=== PATIENT | male | born 1990 | race Hispanic/Latino ===

== ENCOUNTER 2017-12-06 12:39 | Emergency (ER) | payer BC ==
[2017-12-06] MEDS ORDERED: PANTOPRAZOLE 40 MG INJ ONE (14:49)
--- NOTE | 2017-12-06 14:49 | RAD REPORT ---
EXAM DESCRIPTION: US - Abdomen Exam Limited - 12/06/2017 2:37 pm CLINICAL HISTORY: Abdominal pain. COMPARISON: None. FINDINGS: The gallbladder wall is not thickened. A gallstone is not seen. The biliary tree is normal caliber. IMPRESSION: Unremarkable gallbladder ultrasound.
[2017-12-06 15:12] LABS: Absolute Lymphocytes (CBC) 1.6 K/uL (0.7-4.9); Absolute Monocytes 0.6 K/uL (0.1-1.3); Absolute Neutrophil 4.9 K/uL (1.8-8.0); Basophils % 0.6 % (0-1.3); Eosinophils % 0.6 % (0-4.4); Hematocrit 44.5 % (39.6-49.0); Lymphocytes % 21.8 % (15.3-44.8); MCH 30.8 pg (27.0-35.0); MCV 91.6 fL (80-100); MPV 7.5 fL (7.6-11.3); Monocytes % 8.4 % (3.3-12.3); RBC Red Blood Cell Count 4.86 M/uL (4.33-5.43)
[2017-12-06 15:15] LABS: Bicarbonate 30 mEq/L (21-31); Glucose Level 109 mg/dL (65-120); Lipase 17 U/L (22-51); Potassium 3.9 mEq/L (3.6-5.0); Sodium Level 139 mEq/L (135-145)
[2017-12-06 15:22] LABS: ALT/SGPT 22 IU/L (10-60); AST/SGOT 17 IU/L (10-42); Albumin 4.4 g/dL (3.2-5.5); Alkaline Phosphatase 77 IU/L (42-121); Amylase Level 53 U/L (28-100); BUN Blood Urea Nitrogen 13 mg/dL (6-20); Bilirubin Direct 0.1 mg/dL (0-0.2); Bilirubin Total 0.9 mg/dL (0.3-1.2); Protein, Total 7.6 g/dL (6.0-8.3)
--- NOTE | 2017-12-06 17:12 | EDPHYS ---
Physician Documentation [facility] Name: Graham Rosenbaum Age: 27 yrs Sex: Male : 1990 Arrival Date: 12/06/2017 Time: 12:42 Bed 24 Private MD: None, None ED Physician Taiwo Rice HPI: 12/06 15:45 This 27 yrs old Male presents to ER via Ambulatory with complaints of kb Abdominal Pain. 15:45 The patient presents with abdominal pain in the upper abdomen. Onset: The kb symptoms/episode began/occurred last night. The symptoms do not radiate. Associated signs and symptoms: none. The symptoms are described as constant. Modifying factors: The symptoms are alleviated by nothing, the symptoms are aggravated by pressure. Severity of pain: At its worst the pain was mild moderate in the emergency department the pain is unchanged. The patient has not experienced similar symptoms in the past. The patient has not recently seen a physician. Historical: - Allergies: 12:48 No Known Allergies; aj - Home Meds: 12:48 omeprazole Oral [Active]; aj - PMHx: 12:48 Ulcers; aj - PSHx: 12:48 Left Hand; aj - Immunization history:: Adult Immunizations up to date. - Social history:: Smoking status: Patient/guardian denies using tobacco. ROS: 15:44 Constitutional: Negative for fever, chills, and weight loss, Cardiovascular: Negative kb for chest pain, palpitations, and edema, Respiratory: Negative for shortness of breath, cough, wheezing, and pleuritic chest pain, Back: Negative for injury and pain, : Negative for injury, bleeding, discharge, and swelling, MS/Extremity: Negative for injury and deformity, Skin: Negative for injury, rash, and discoloration, Neuro: Negative for headache, weakness, numbness, tingling, and seizure. 15:44 Abdomen/GI: Positive for abdominal pain, Negative for nausea, vomiting, and diarrhea, constipation, abdominal cramps, abdominal distension, anorexia. Exam: 15:44 Constitutional: This is a well developed, well nourished patient who is awake, alert, kb and in no acute distress. Head/Face: Normocephalic, atraumatic. Chest/axilla: Normal chest wall appearance and motion. Nontender with no deformity. No lesions are appreciated. Cardiovascular: Regular rate and rhythm with a normal S1 and S2. No gallops, murmurs, or rubs. Normal PMI, no JVD. No pulse deficits. Respiratory: Lungs have equal breath sounds bilaterally, clear to auscultation and percussion. No rales, rhonchi or wheezes noted. No increased work of breathing, no retractions or nasal flaring. Back: No spinal tenderness. No costovertebral tenderness. Full range of motion. Skin: Warm, dry with normal turgor. Normal color with no rashes, no lesions, and no evidence of cellulitis. MS/ Extremity: Pulses equal, no cyanosis. Neurovascular intact. Full, normal range of motion. Neuro: Awake and alert, GCS 15, oriented to person, place, time, and situation. Cranial nerves II-XII grossly intact. Motor strength 5/5 in all extremities. Sensory grossly intact. Cerebellar exam normal. Normal gait. 15:44 Abdomen/GI: Inspection: abdomen appears normal, Bowel sounds: normal, in all quadrants, Palpation: soft, in all quadrants, mild abdominal tenderness, in the epigastric area, right upper quadrant and left upper quadrant. Vital Signs: 12:48 BP 125 / 95; Pulse 90; Resp 17; Temp 98.1; Pulse Ox 96% on R/A; Weight 129.27 kg; aj Height 6 ft. 1 in. (185.42 cm); 13:48 BP 140 / 84; Pulse 77; Resp 18; Pulse Ox 95% on R/A; aj1 14:45 BP 135 / 72; Pulse 64; Resp 18; Pulse Ox 99% ; aj1 15:51 BP 124 / 95; Pulse 70; Resp 18; Pulse Ox 100% ; aj1 17:00 BP 137 / 73; Pulse 62; Resp 16; Pulse Ox 100% on R/A; mt 12:48 Body Mass Index 37.60 (129.27 kg, 185.42 cm) aj MDM: 13:58 Patient medically screened. kb 15:44 Data reviewed: vital signs, nurses notes. Data interpreted: Pulse oximetry: on room air kb is 95 %. Interpretation: normal. 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 12/06 14:18 Order name: Amylase, Serum; Complete Time: 15:25 kb 12/06 14:18 Order name: Basic Metabolic Panel; Complete Time: 15:25 kb 12/06 14:18 Order name: CBC with Diff; Complete Time: 15:16 kb 12/06 14:18 Order name: Hepatic Function; Complete Time: 15:25 kb 12/06 14:18 Order name: Lipase; Complete Time: 15:25 kb 12/06 18:41 Order name: Urine Dipstick--Ancillary (enter results) ag 12/06 14:18 Order name: IV Saline Lock; Complete Time: 14:57 kb 12/06 14:18 Order name: Labs collected and sent; Complete Time: 14:57 kb 12/06 14:18 Order name: Urine Dipstick-Ancillary (obtain specimen); Complete Time: 16:46 kb 12/06 14:18 Order name: US Abdomen Limited; Complete Time: 14:54 kb Administered Medications: 14:57 Drug: ProTONIX 40 mg Route: IVP; Site: right antecubital; aj1 16:46 Follow up: Response: No adverse reaction aj1 Disposition: 12/06/17 17:11 Discharged to Home. Impression: Upper abdominal pain, unspecified. - Condition is Stable. - Discharge Instructions: Gastroesophageal Reflux Disease, Adult, Abdominal Pain, Adult, [id number]. - Medication Reconciliation Form, Thank You Letter, Antibiotic Education, Prescription Opioid Use form. - Follow up: Emergency Department; When: As needed; Reason: Worsening of condition. Follow up: Private Physician; When: 2 - 3 days; Reason: Recheck today's complaints, Continuance of care, Re-evaluation by your physician. Addendum: 12/09/2017 08:47 Co-signature as Attending Physician, Taiwo Rice MD I agree with the assessment and c lopez plan of care. Signatures: Dispatcher [employer] Qiana Finley, LAMAR VILLASENOR-Adalgisa Hallman RN RN aj1 Irina Sutton RN RN aj Anderson, Corey, MD MD cha Gallardo, Ana ag Corrections: (The following items were deleted from the chart) 12/06 17:27 17:11 12/06/2017 17:11 Discharged to Home. Impression: Upper abdominal pain, aj1 unspecified. Condition is Stable. Forms are Medication Reconciliation Form, Thank You Letter, Antibiotic Education, Prescription Opioid Use. Follow up: Emergency Department; When: As needed; Reason: Worsening of condition. Follow up: Private Physician; When: 2 - 3 days; Reason: Recheck today's complaints, Continuance of care, Re-evaluation by your physician. kb 18:42 17:27 12/06/2017 17:11 Discharged to Home. Impression: Upper abdominal pain, ag unspecified. Condition is Stable. Discharge Instructions: Gastroesophageal Reflux Disease, Adult, Abdominal Pain, Adult, [id number]. Forms are Medication Reconciliation Form, Thank You Letter, Antibiotic Education, Prescription Opioid Use. Follow up: Emergency Department; When: As needed; Reason: Worsening of condition. Follow up: Private Physician; When: 2 - 3 days; Reason: Recheck today's complaints, Continuance of care, Re-evaluation by your physician. aj1
--- NOTE | 2017-12-06 17:12 | ER ---
Nurse's Notes [facility] Name: Graham Rosenbaum Age: 27 yrs Sex: Male : 1990 Arrival Date: 12/06/2017 Time: 12:42 Bed 24 Private MD: None, None Diagnosis: Upper abdominal pain, unspecified Presentation: 12/06 12:46 Presenting complaint: Patient states: Upper abdominal pain that started today. Patient aj states, "it's my ulcers." Patient did not call his GI doctor before coming to ER. Transition of care: patient was not received from another setting of care. Onset of symptoms was December 06, 2017. Initial Sepsis Screen: Does the patient meet any 2 criteria? No. Patient's initial sepsis screen is negative. Does the patient have a suspected source of infection? No. Patient's initial sepsis screen is negative. Care prior to arrival: None. 12:46 Method Of Arrival: Ambulatory aj 12:46 Acuity: SAMANTHA 3 aj Triage Assessment: 12:48 General: Appears in no apparent distress. comfortable, Behavior is calm, cooperative, aj appropriate for age. Pain: Complains of pain in epigastric area and left upper quadrant. Neuro: Level of Consciousness is awake, alert, obeys commands, Oriented to person, place, time, situation, Appropriate for age. Respiratory: Airway is patent Respiratory effort is even, unlabored, Respiratory pattern is regular, symmetrical. GI: Abdomen is flat, non-distended. GI: Reports upper abdominal pain, epigastric pain. Derm: Skin is intact, is healthy with good turgor, Skin is pink, warm \\T\\ dry. normal. Historical: - Allergies: 12:48 No Known Allergies; aj - Home Meds: 12:48 omeprazole Oral [Active]; aj - PMHx: 12:48 Ulcers; aj - PSHx: 12:48 Left Hand; aj - Immunization history:: Adult Immunizations up to date. - Social history:: Smoking status: Patient/guardian denies using tobacco. Screenin:48 Abuse screen: Denies threats or abuse. Denies injuries from another. Nutritional aj1 screening: No deficits noted. Tuberculosis screening: No symptoms or risk factors identified. 17:26 Fall Risk None identified. aj1 Assessment: 13:48 General: Appears in no apparent distress. uncomfortable, Behavior is calm, cooperative, aj1 appropriate for age. Pain: Complains of pain in left upper quadrant and epigastric area Pain does not radiate. Pain currently is 7 out of 10 on a pain scale. Quality of pain is described as squeezing, Alleviated by nothing. Aggravated by nothing. Neuro: Level of Consciousness is awake, alert, obeys commands, Oriented to person, place, time, situation, Speech is normal, Facial symmetry appears normal. Cardiovascular: Patient's skin is warm and dry. Respiratory: Airway is patent Respiratory effort is even, unlabored, Respiratory pattern is regular, symmetrical. GI: Abdomen is non-distended, Bowel sounds present X 4 quads. Abd is soft X 4 quads Abdomen is tender to palpation in left upper quadrant and epigastric area Patient currently denies diarrhea, nausea, vomiting. : No signs and/or symptoms were reported regarding the genitourinary system. EENT: No signs and/or symptoms were reported regarding the EENT system. Derm: No signs and/or symptoms reported regarding the dermatologic system. Skin is pink, warm \\T\\ dry. normal. Musculoskeletal: No signs and/or symptoms reported regarding the musculoskeletal system. Circulation, motion, and sensation intact. 14:45 Reassessment: Patient appears in no apparent distress at this time. No changes from aj1 previously documented assessment. Patient and/or family updated on plan of care and expected duration. Pain level reassessed. Patient is alert, oriented x 3, equal unlabored respirations, skin warm/dry/pink. 15:50 Reassessment: Patient appears in no apparent distress at this time. No changes from aj1 previously documented assessment. Patient and/or family updated on plan of care and expected duration. Pain level reassessed. Patient is alert, oriented x 3, equal unlabored respirations, skin warm/dry/pink. 17:06 Reassessment: Patient appears in no apparent distress at this time. No changes from aj1 previously documented assessment. Patient and/or family updated on plan of care and expected duration. Pain level reassessed. Patient is alert, oriented x 3, equal unlabored respirations, skin warm/dry/pink. Vital Signs: 12:48 BP 125 / 95; Pulse 90; Resp 17; Temp 98.1; Pulse Ox 96% on R/A; Weight 129.27 kg; aj Height 6 ft. 1 in. (185.42 cm); 13:48 BP 140 / 84; Pulse 77; Resp 18; Pulse Ox 95% on R/A; aj1 14:45 BP 135 / 72; Pulse 64; Resp 18; Pulse Ox 99% ; aj1 15:51 BP 124 / 95; Pulse 70; Resp 18; Pulse Ox 100% ; aj1 17:00 BP 137 / 73; Pulse 62; Resp 16; Pulse Ox 100% on R/A; mt 12:48 Body Mass Index 37.60 (129.27 kg, 185.42 cm) aj ED Course: 12:42 Patient arrived in ED. mr 12:42 None, None is Private Physician. mr 12:47 Triage completed. aj 12:48 Arm band placed on left wrist. Patient placed in waiting room, Patient notified of wait aj time. 13:42 Tiki Tran, RN is Primary Nurse. iw 13:48 Adalgisa Sadler, RN is Primary Nurse. aj1 13:48 Patient has correct armband on for positive identification. Bed in low position. Call aj1 light in reach. Side rails up X 1. 13:48 No provider procedures requiring assistance completed. aj1 13:58 Qiana Gómez FNP-C is PSYCHIATRICP. kb 13:58 Taiwo Rice MD is Attending Physician. kb 14:30 US Abdomen Limited In Process Unspecified. EDMS 17:26 IV discontinued, intact, bleeding controlled, No redness/swelling at site. Pressure aj1 dressing applied. 18:39 Primary Nurse role handed off by Adalgisa Sadler, KENNEDY ag Administered Medications: 14:57 Drug: ProTONIX 40 mg Route: IVP; Site: right antecubital; aj1 16:46 Follow up: Response: No adverse reaction aj1 Outcome: 17:11 Discharge ordered by . kb 17:26 Discharged to home ambulatory. aj1 17:26 Condition: good 17:26 Discharge instructions given to patient, Instructed on discharge instructions, follow up and referral plans. Demonstrated understanding of instructions, follow-up care. 17:27 Patient left the ED. aj1 18:42 Patient left the ED. ag Signatures: Dispatcher [employer] EDMS Qiana Gómez FNP-C FNP-Adalgisa Hallman RN RN ajIrina Louis RN RN aj Rivera, Maria mr Tiki Tran, RN KENNEDY Sabina Damon Moriah mt
[2017-12-06 18:50] LABS: Urine Blood TRACE (NEG); Urine Glucose NEGATIVE (NEG); Urine Protein NEGATIVE (NEG); Urine pH 7.5 (5.0-7.0)
== END 2017-12-06 18:42 | disposition home or self-care (01) ==
LOC: ER 12:39
DX: R10.10 Upper abdominal pain, unspecified (principal)
CPT/HCPCS: 36415; 76705; 80048; 80076; 81003; 82150; 83690; 85025; 96374; 99283; C9113

== ENCOUNTER 2018-02-27 06:46 | Emergency (ER) | payer BC ==
--- NOTE | 2018-02-27 07:26 | ER ---
Nurse's Notes [facility] Name: Graham Rosenbaum Age: 27 yrs Sex: Male : 1990 Arrival Date: 02/27/2018 Time: 06:50 Bed 13 Private MD: Diagnosis: Encounter for attention to dressings, sutures and drains Presentation: 02/27 07:03 Presenting complaint: Patient states: he was at work yesterday and got some PVC bb chemical on his abscess on his back that he had taken the packing out of. Transition of care: patient was not received from another setting of care. Onset of symptoms was February 26, 2018. Risk Assessment: Do you want to hurt yourself or someone else? Patient reports no desire to harm self or others. Initial Sepsis Screen: Does the patient meet any 2 criteria? No. Patient's initial sepsis screen is negative. Does the patient have a suspected source of infection? No. Patient's initial sepsis screen is negative. Care prior to arrival: None. 07:03 Method Of Arrival: Ambulatory bb 07:03 Acuity: SAMANTHA 5 bb Historical: - Allergies: 07:05 No Known Allergies; bb - Home Meds: 07:05 Albuterol Inhl [Active]; bb - PMHx: 07:05 Asthma; bb - PSHx: 07:05 hand surgery; bb - Immunization history:: Adult Immunizations up to date. - Social history:: Smoking status: Patient/guardian denies using tobacco, Patient uses alcohol, occasionally. Patient/guardian denies using street drugs. - Ebola Screening: : No symptoms or risks identified at this time. Screenin:02 Abuse screen: Denies threats or abuse. Nutritional screening: No deficits noted. rb1 Tuberculosis screening: No symptoms or risk factors identified. Fall Risk None identified. Assessment: 07:02 General: Appears in no apparent distress. comfortable, Behavior is calm, cooperative, rb1 Denies fever. Pain: Complains of pain in back Pain currently is 6 out of 10 on a pain scale. Pain began 1 day ago. Neuro: Level of Consciousness is awake, alert, obeys commands, Oriented to person, place, time, situation. Cardiovascular: Capillary refill < 3 seconds is brisk in bilateral fingers. Respiratory: Airway is patent Respiratory effort is even, unlabored, Respiratory pattern is regular, symmetrical. GI: No signs and/or symptoms were reported involving the gastrointestinal system. : No signs and/or symptoms were reported regarding the genitourinary system. Derm: Skin is pink, warm \T\ dry. Abscess located on back is 1.5 cm has no drainage. Musculoskeletal: Range of motion: intact in all extremities. Vital Signs: 07:05 BP 137 / 95; Pulse 70; Resp 16 S; Temp 98.7; Pulse Ox 96% on R/A; Weight 133.81 kg (R); bb Height 6 ft. 1 in. (185.42 cm) (R); Pain 4/10; 07:05 Body Mass Index 38.92 (133.81 kg, 185.42 cm) bb ED Course: 06:50 Patient arrived in ED. es 06:51 Taiwo Benito PA is PHCP. cp 06:51 Sher Song MD is Attending Physician. cp 07:02 Nyla Bosch, RN is Primary Nurse. rb1 07:02 Patient has correct armband on for positive identification. Placed in gown. Bed in low rb1 position. Call light in reach. Side rails up X 1. Pulse ox on. NIBP on. 07:04 Triage completed. bb 07:05 Arm band placed on Patient placed in an exam room, on a stretcher, on pulse oximetry. bb 07:16 Aaron Gutierrez MD is Attending Physician. cp 07:39 No provider procedures requiring assistance completed. Patient did not have IV access rb1 during this emergency room visit. Administered Medications: No medications were administered Outcome: 07:25 Discharge ordered by . cp 07:39 Patient left the ED. rb1 07:39 Discharged to home ambulatory. rb1 07:39 Condition: stable 07:39 Discharge instructions given to patient, Instructed on discharge instructions, follow up and referral plans. Demonstrated understanding of instructions, follow-up care, Prescriptions given X none Signatures: Odilia Stevenson Brenda RN RN bb Taiwo Benito PA PA cp Barber, Rebecca, RN RN rb1
--- NOTE | 2018-02-27 07:26 | EDPHYS ---
Physician Documentation [facility] Name: Graham Rosenbaum Age: 27 yrs Sex: Male : 1990 Arrival Date: 02/27/2018 Time: 06:50 Bed 13 Private MD: ED Physician Aaron Gutierrez HPI: 02/27 07:12 This 27 yrs old Male presents to ER via Ambulatory with complaints of Abscess. cp 07:13 Patient presents to ED for recheck of: abscess. The affected area is on the back. cp Previous treatment: The patient was initially treated 3-4 days ago, the care was rendered at another emergency department, [place], Treatment type: The patient's original treatment included an I\T\D, Previous recheck: the patient has not been checked since the original treatment. Progress: The patient reports no drainage. Patient reports packing removed yesterday and was concerned about irritation from PVC resin while at work yesterday. Historical: - Allergies: 07:05 No Known Allergies; bb - Home Meds: 07:05 Albuterol Inhl [Active]; bb - PMHx: 07:05 Asthma; bb - PSHx: 07:05 hand surgery; bb - Immunization history:: Adult Immunizations up to date. - Social history:: Smoking status: Patient/guardian denies using tobacco, Patient uses alcohol, occasionally. Patient/guardian denies using street drugs. - Ebola Screening: : No symptoms or risks identified at this time. ROS: 07:15 Eyes: Negative for injury, pain, redness, and discharge. cp 07:15 Constitutional: Negative for body aches, chills, fever, poor PO intake. 07:15 Skin: Positive for abscess, of the back, Negative for rash. 07:15 All other systems are negative. Exam: 07:15 Head/Face: Normocephalic, atraumatic. cp 07:15 Constitutional: The patient appears in no acute distress, alert, awake, non-toxic, well developed, well nourished. 07:15 Eyes: Periorbital structures: appear normal, Conjunctiva: normal, Sclera: no cp appreciated abnormality, Lids and lashes: appear normal, bilaterally. 07:15 ENT: External ear(s): are unremarkable, Nose: is normal, Mouth: Lips: moist, Oral mucosa: pink and intact, moist, Posterior pharynx: is normal, airway is patent. 07:15 Chest/axilla: Inspection: normal, Palpation: is normal, no crepitus, no tenderness. 07:15 Cardiovascular: Rate: normal, Rhythm: regular. 07:15 Respiratory: the patient does not display signs of respiratory distress, Respirations: cp normal, no use of accessory muscles, no retractions, no splinting, no tachypnea, labored breathing, is not present, Breath sounds: are clear throughout, no decreased breath sounds, no stridor, no wheezing. 07:15 Abdomen/GI: Inspection: abdomen appears normal, Palpation: abdomen is soft and non-tender, in all quadrants. 07:15 Skin: Wound recheck: Abscess: the packing is not in place, minimal swelling, no drainage expressed, minimal erythema noted. Vital Signs: 07:05 BP 137 / 95; Pulse 70; Resp 16 S; Temp 98.7; Pulse Ox 96% on R/A; Weight 133.81 kg (R); bb Height 6 ft. 1 in. (185.42 cm) (R); Pain 4/10; 07:05 Body Mass Index 38.92 (133.81 kg, 185.42 cm) bb MDM: 06:58 Patient medically screened. cp 07:24 Data reviewed: vital signs, nurses notes, and as a result, I will discharge patient. cp 07:24 Counseling: I had a detailed discussion with the patient and/or guardian regarding: the cp historical points, exam findings, and any diagnostic results supporting the discharge/admit diagnosis, the need for outpatient follow up. Administered Medications: No medications were administered Disposition: 07:59 Co-signature as Attending Physician, Aaron Gutierrez MD I agree with the assessment and kdr plan of care. Disposition: 02/27/18 07:25 Discharged to Home. Impression: Encounter for attention to dressings, sutures and drains. - Condition is Stable. - Discharge Instructions: Wound Check. - Medication Reconciliation Form, Thank You Letter, Antibiotic Education, Prescription Opioid Use form. - Follow up: Private Physician; When: 1 - 2 days; Reason: Wound Recheck. - Problem is new. - Symptoms have improved. Signatures: Aaron Gutierrez MD MD kdr Ballard, Brenda, RN RN bb Taiwo Benito PA PA cp Barber, Nyla, RN RN rb1 Corrections: (The following items were deleted from the chart) 07:15 07:12 The patient presents with an abscess of the back, cp cp 07:39 07:25 02/27/2018 07:25 Discharged to Home. Impression: Encounter for attention to rb1 dressings, sutures and drains. Condition is Stable. Forms are Medication Reconciliation Form, Thank You Letter, Antibiotic Education, Prescription Opioid Use. Follow up: Private Physician; When: 1 - 2 days; Reason: Wound Recheck. Problem is new. Symptoms have improved. cp
== END 2018-02-27 07:39 | disposition home or self-care (01) ==
LOC: ER 06:46
DX: Z48.00 Encounter for change or removal of nonsurgical wound dressing (principal); Z51.89 Encounter for other specified aftercare
CPT/HCPCS: 99283

== ENCOUNTER 2018-03-14 16:40 | Emergency (ER) | payer BC ==
--- NOTE | 2018-03-14 17:10 | ER ---
Nurse's Notes [facility] Name: Graham Rosenbaum Age: 27 yrs Sex: Male : 1990 Arrival Date: 03/14/2018 Time: 16:42 Bed 11 Private MD: None, None Diagnosis: Mononeuropathy, unspecified Presentation: 03/14 16:45 Presenting complaint: Patient states: I was arrested last week and the handcuffs were la1 real tight and now I am having numbness in Giacomo 4th and 5th digits. Transition of care: patient was not received from another setting of care. Onset of symptoms was March 14, 2018. Risk Assessment: Do you want to hurt yourself or someone else? Patient reports no desire to harm self or others. Initial Sepsis Screen: Does the patient meet any 2 criteria? No. Patient's initial sepsis screen is negative. Does the patient have a suspected source of infection? No. Patient's initial sepsis screen is negative. Care prior to arrival: None. 16:45 Method Of Arrival: Ambulatory la1 16:45 Acuity: SAMANTHA 4 la1 Historical: - Allergies: 16:46 No Known Allergies; la1 - PMHx: 16:46 Asthma; la1 - Immunization history:: Adult Immunizations up to date. - Social history:: Smoking status: Patient/guardian denies using tobacco. - Ebola Screening: : No symptoms or risks identified at this time. Screenin:51 Abuse screen: Denies threats or abuse. Nutritional screening: No deficits noted. la1 Tuberculosis screening: No symptoms or risk factors identified. Fall Risk None identified. Assessment: 16:51 Reassessment: Patient is alert, oriented x 3, equal unlabored respirations, skin la1 warm/dry/pink. General: Appears in no apparent distress. Behavior is calm, cooperative. Pain: Denies pain. Neuro: Reports numbness in GIACOMO 4th and 5th digits. Vital Signs: 16:46 BP 145 / 85; Pulse 91; Resp 16; Temp 97.3; Pulse Ox 100% on R/A; Weight 136.08 kg; la1 Height 6 ft. 1 in. (185.42 cm); 16:46 Body Mass Index 39.58 (136.08 kg, 185.42 cm) la1 ED Course: 16:42 Patient arrived in ED. mr 16:43 None, None is Private Physician. mr 16:46 Triage completed. la1 16:46 Arm band placed on left wrist. la1 16:51 Call light in reach. la1 16:51 No provider procedures requiring assistance completed. Patient did not have IV access la1 during this emergency room visit. 16:55 Qiana Gómez FNP-C is [facility]. kb 16:55 Andreas Madison MD is Attending Physician. kb 17:11 Tiki Tran, RN is Primary Nurse. iw Administered Medications: No medications were administered Outcome: 17:09 Discharge ordered by MD. kb 17:17 Discharged to home ambulatory. la1 17:17 Condition: stable 17:17 Discharge instructions given to patient, Instructed on discharge instructions, follow up and referral plans. medication usage, Demonstrated understanding of instructions, follow-up care. 17:18 Patient left the ED. la1 Signatures: Qiana Gómez FNP-C FNP-Geneva Garcia mr Tiki Tran, RN Tyrese Hollis RN RN la1
--- NOTE | 2018-03-14 17:10 | EDPHYS ---
Physician Documentation [facility] Name: Graham Rosenbaum Age: 27 yrs Sex: Male : 1990 Arrival Date: 03/14/2018 Time: 16:42 Bed 11 Private MD: None, None ED Physician Andreas Madison HPI: 03/14 17:10 This 27 yrs old Male presents to ER via Ambulatory with complaints of Numbness kb of fingers. 17:11 The patient or guardian reports pain, numbness. The complaints affect the right ring kb finger, right little finger, left ring finger and left little finger. Context: The problem was sustained outdoors, resulted from "handcuffs were too tight". Onset: The symptoms/episode began/occurred 6 day(s) ago. Modifying factors: The symptoms are alleviated by nothing, the symptoms are aggravated by positioning. Associated signs and symptoms: Pertinent positives: numbness, tingling, radiating pain to elbow. Severity of symptoms: At their worst the symptoms were mild, moderate, in the emergency department the symptoms are unchanged. The patient has not experienced similar symptoms in the past. The patient has not recently seen a physician. Historical: - Allergies: 16:46 No Known Allergies; la1 - PMHx: 16:46 Asthma; la1 - Immunization history:: Adult Immunizations up to date. - Social history:: Smoking status: Patient/guardian denies using tobacco. - Ebola Screening: : No symptoms or risks identified at this time. ROS: 17:12 Constitutional: Negative for fever, chills, and weight loss, ENT: Negative for injury, kb pain, and discharge, Neck: Negative for injury, pain, and swelling, Cardiovascular: Negative for chest pain, palpitations, and edema, Respiratory: Negative for shortness of breath, cough, wheezing, and pleuritic chest pain, Abdomen/GI: Negative for abdominal pain, nausea, vomiting, diarrhea, and constipation, Back: Negative for injury and pain, Skin: Negative for injury, rash, and discoloration. 17:12 Neuro: Positive for numbness, of the right little finger and right ring finger and left little finger and left ring finger. Exam: 17:12 Constitutional: This is a well developed, well nourished patient who is awake, alert, kb and in no acute distress. Head/Face: Normocephalic, atraumatic. Neck: Trachea midline, no thyromegaly or masses palpated, and no cervical lymphadenopathy. Supple, full range of motion without nuchal rigidity, or vertebral point tenderness. No Meningismus. Chest/axilla: Normal chest wall appearance and motion. Nontender with no deformity. No lesions are appreciated. Cardiovascular: Regular rate and rhythm with a normal S1 and S2. No gallops, murmurs, or rubs. Normal PMI, no JVD. No pulse deficits. Respiratory: Lungs have equal breath sounds bilaterally, clear to auscultation and percussion. No rales, rhonchi or wheezes noted. No increased work of breathing, no retractions or nasal flaring. Abdomen/GI: Soft, non-tender, with normal bowel sounds. No distension or tympany. No guarding or rebound. No evidence of tenderness throughout. Skin: Warm, dry with normal turgor. Normal color with no rashes, no lesions, and no evidence of cellulitis. MS/ Extremity: Pulses equal, no cyanosis. Neurovascular intact. Full, normal range of motion. Neuro: Awake and alert, GCS 15, oriented to person, place, time, and situation. Cranial nerves II-XII grossly intact. Motor strength 5/5 in all extremities. Sensory grossly intact. Cerebellar exam normal. Normal gait. Vital Signs: 16:46 BP 145 / 85; Pulse 91; Resp 16; Temp 97.3; Pulse Ox 100% on R/A; Weight 136.08 kg; la1 Height 6 ft. 1 in. (185.42 cm); 16:46 Body Mass Index 39.58 (136.08 kg, 185.42 cm) la1 MDM: 16:55 Patient medically screened. kb 17:13 Data reviewed: vital signs, nurses notes. Data interpreted: Pulse oximetry: on room air kb is 100 %. Interpretation: normal. Counseling: I had a detailed discussion with the patient and/or guardian regarding: the historical points, exam findings, and any diagnostic results supporting the discharge/admit diagnosis, the need for outpatient follow up, a neurologist, to return to the emergency department if symptoms worsen or persist or if there are any questions or concerns that arise at home. Administered Medications: No medications were administered Disposition: 03/15 15:48 Co-signature as Attending Physician, Andreas Madison MD. gs Disposition: 03/14/18 17:09 Discharged to Home. Impression: Mononeuropathy, unspecified. - Condition is Stable. - Discharge Instructions: Neuropathic Pain, Pinched Nerve. - Medication Reconciliation Form, Thank You Letter, Antibiotic Education, Prescription Opioid Use, Work release form form. - Follow up: Emergency Department; When: As needed; Reason: Worsening of condition. Follow up: Private Physician; When: 2 - 3 days; Reason: Recheck today's complaints, Continuance of care, Re-evaluation by your physician. Signatures: Qiana óGmez, EXCEPTIONAL STUDENT EDUCATION TEACHER-C EXCEPTIONAL STUDENT EDUCATION TEACHER-Ckb Tyrese Pool RN RN la1 Andreas Madison MD MD Corrections: (The following items were deleted from the chart) 03/14 17:18 17:09 03/14/2018 17:09 Discharged to Home. Impression: Mononeuropathy, unspecified. la1 Condition is Stable. Forms are Medication Reconciliation Form, Thank You Letter, Antibiotic Education, Prescription Opioid Use. Follow up: Emergency Department; When: As needed; Reason: Worsening of condition. Follow up: Private Physician; When: 2 - 3 days; Reason: Recheck today's complaints, Continuance of care, Re-evaluation by your physician. kb
== END 2018-03-14 17:18 | disposition home or self-care (01) ==
LOC: ER 16:40
DX: G56.93 Unspecified mononeuropathy of bilateral upper limbs (principal)
CPT/HCPCS: 99281

== ENCOUNTER 2018-09-21 22:57 | Emergency (ER) | payer BC ==
[2018-09-22 00:50] LABS: Absolute Lymphocytes (CBC) 1.3 K/uL (0.7-4.9); Absolute Monocytes 0.6 K/uL (0.1-1.3); Absolute Neutrophil 4.5 K/uL (1.8-8.0); Basophils % 0.5 % (0-1.3); Eosinophils % 0.4 % (0-4.4); Hematocrit 46.1 % (39.6-49.0); Lymphocytes % 20.4 % (15.3-44.8); MPV 7.3 fL (7.6-11.3); Monocytes % 8.7 % (3.3-12.3); RBC Red Blood Cell Count 5.09 M/uL (4.33-5.43)
[2018-09-22 01:09] LABS: ALT/SGPT 36 U/L (12-78); AST/SGOT 19 U/L (15-37); Albumin 4.1 g/dL (3.4-5.0); Alkaline Phosphatase 106 U/L (45-117); BUN Blood Urea Nitrogen 8 mg/dL (7-18); Bicarbonate 24 mmol/L (21-32); Bilirubin Direct 0.1 mg/dL (0-0.2); Bilirubin Total 0.4 mg/dL (0.2-1.0); Glucose Level 94 mg/dL (74-106); Lipase 47 U/L (73-393); Potassium 3.7 mmol/L (3.5-5.1); Sodium Level 142 mmol/L (136-145)
[2018-09-22] MEDS ORDERED: PANTOPRAZOLE 40 MG INJ ONE (01:09)
[2018-09-22] MEDS ORDERED: ONDANSETRON 4 MG (ODT) TAB ONE (01:09)
--- NOTE | 2018-09-22 02:29 | ER ---
Nurse's Notes [facility] Name: Graham Rosenbaum Age: 28 yrs Sex: Male : 1990 Arrival Date: 09/21/2018 Time: 23:24 Bed 19 Private MD: Diagnosis: Upper abdominal pain, unspecified;Gastro-esophageal reflux disease Presentation: 09/21 22:58 Presenting complaint: EMS states: Pt is complaining of abdominal pain, reports vomiting jb4 prior to our arrival, reported having blood in stool and vomit. Last set of vitals were 153/96, 97% on RA, HR 101. 22:58 Transition of care: From [place]. Onset of symptoms was September 21, 2018. Risk jb4 Assessment: Do you want to hurt yourself or someone else? Patient reports no desire to harm self or others. Initial Sepsis Screen: Does the patient meet any 2 criteria? No. Patient's initial sepsis screen is negative. Does the patient have a suspected source of infection? No. Patient's initial sepsis screen is negative. Care prior to arrival: Glucose check: 108. 22:58 Method Of Arrival: EMS: [facility] jb4 22:58 Acuity: SAMANTHA 3 jb4 Triage Assessment: 23:00 General: Appears in no apparent distress. comfortable, Behavior is calm, cooperative, cc3 appropriate for age. Pain: Complains of pain in abdomen. EENT: No signs and/or symptoms were reported regarding the EENT system. Neuro: Level of Consciousness is awake, alert, obeys commands, Oriented to person, place, time, situation, Appropriate for age. Cardiovascular: Denies chest pain, Patient's skin is warm and dry. Respiratory: Airway is patent Respiratory effort is even, unlabored, Respiratory pattern is regular, symmetrical. GI: Abdomen is round non-distended. : No signs and/or symptoms were reported regarding the genitourinary system. Derm: No signs and/or symptoms reported regarding the dermatologic system. Musculoskeletal: No signs and/or symptoms reported regarding the musculoskeletal system. Historical: - Allergies: 22:55 No Known Allergies; jb4 - Home Meds: 22:55 Albuterol Inhl [Active]; jb4 - PMHx: 22:55 Asthma; Hypertension; GERD; jb4 - PSHx: 22:55 None; jb4 - Immunization history:: Adult Immunizations. - Ebola Screening: : No symptoms or risks identified at this time. - Social history:: Smoking status: Patient/guardian denies using tobacco, never smoked. Screenin:00 Abuse screen: Denies threats or abuse. Denies injuries from another. Nutritional cc3 screening: No deficits noted. Tuberculosis screening: No symptoms or risk factors identified. Fall Risk Ambulatory Aid- None/Bed Rest/Nurse Assist (0 pts). Gait- Normal/Bed Rest/Wheelchair (0 pts) Mental Status- Oriented to own ability (0 pts). Assessment: 23:00 General: see triage assessment. cc3 09/22 00:05 Reassessment: Patient appears in no apparent distress at this time. Patient and/or cc3 family updated on plan of care and expected duration. Pain level reassessed. Patient is alert, oriented x 3, equal unlabored respirations, skin warm/dry/pink. 01:36 Reassessment: Patient appears in no apparent distress at this time. Patient and/or cc3 family updated on plan of care and expected duration. Pain level reassessed. Patient is alert, oriented x 3, equal unlabored respirations, skin warm/dry/pink. 02:18 Reassessment: Patient appears in no apparent distress at this time. Patient and/or cc3 family updated on plan of care and expected duration. Pain level reassessed. Patient is alert, oriented x 3, equal unlabored respirations, skin warm/dry/pink. 03:00 Reassessment: Patient appears in no apparent distress at this time. Patient and/or cc3 family updated on plan of care and expected duration. Pain level reassessed. Patient is alert, oriented x 3, equal unlabored respirations, skin warm/dry/pink. ANNIE Shahid discharged the patient to law enforcement with prescription given. IV cannula removed and patient left ER vitally stable and ambulatory with the [place] police officers. Vital Signs: 09/21 22:55 BP 149 / 103; Pulse 98; Resp 16; Temp 98.7(O); Pulse Ox 96% on R/A; Weight 136.08 kg jb4 (R); Height 6 ft. 1 in. (185.42 cm) (R); Pain 2/10; 23:15 BP 142 / 82; Pulse 94; Resp 18 S; Pulse Ox 97% on R/A; cc3 09/22 00:30 BP 133 / 82; Pulse 87; Resp 19 S; Pulse Ox 97% on R/A; cc3 01:15 BP 139 / 75; Pulse 85; Resp 18 S; Pulse Ox 96% on R/A; cc3 02:18 BP 134 / 77; Pulse 88; Resp 16 S; Pulse Ox 96% on R/A; cc3 09/21 22:55 Body Mass Index 39.58 (136.08 kg, 185.42 cm) jb4 ED Course: 09/21 22:55 Arm band placed on left wrist. jb4 23:00 Patient has correct armband on for positive identification. Bed in low position. Call cc3 light in reach. Side rails up X 1. [place] police officers with the patient. Pulse ox on. NIBP on. 23:24 Patient arrived in ED. jb4 23:28 Zehra Aguilar FNP-C is PHCP. snw 23:28 Xavier Rios MD is Attending Physician. snw 23:28 Triage completed. jb4 09/22 00:25 Ira Prajapati is Primary Nurse. cc3 00:45 Inserted saline lock: 20 gauge in left antecubital area, using aseptic technique. Blood cc3 collected. 01:33 CT Stone Protocol In Process Unspecified. EDMS 02:27 Ron Mondragon MD is Referral Physician. snw 03:00 No provider procedures requiring assistance completed. IV discontinued, intact, cc3 bleeding controlled, No redness/swelling at site. Pressure dressing applied. Administered Medications: 01:00 Drug: Zofran 4 mg Route: PO; cc3 01:37 Follow up: Response: No adverse reaction; Nausea is decreased cc3 01:00 Drug: ProTONIX 40 mg Route: IVP; Site: left antecubital; cc3 01:36 Follow up: Response: No adverse reaction; Pain is decreased cc3 02:40 Drug: Bentyl 20 mg Route: PO; jb4 03:00 Follow up: Response: No adverse reaction cc3 Outcome: 02:29 Discharge ordered by . snw 03:00 Discharged to Law Enforcement cc3 03:00 Condition: stable cc3 03:00 Discharge instructions given to patient, Instructed on discharge instructions, follow up and referral plans. medication usage, Demonstrated understanding of instructions, follow-up care, medications, Prescriptions given X 4. 03:08 Patient left the ED. cc3 Signatures: Dispatcher [employer] EDMS Zehra Aguilar, GENERAL CLAIMS AGENT-C GENERAL CLAIMS AGENT-Csnw Sarwat Henderson, RN RN jb4 Ira Prajapati cc3 Corrections: (The following items were deleted from the chart) 04:00 No provider procedures requiring assistance completed. cc3 cc3 04:00 IV discontinued, intact, bleeding controlled, No redness/swelling at site. cc3 Pressure dressing applied, cc3
--- NOTE | 2018-09-22 02:30 | EDPHYS ---
Physician Documentation [facility] Name: Graham Rosenbaum Age: 28 yrs Sex: Male : 1990 Arrival Date: 09/21/2018 Time: 23:24 Bed 19 Private MD: ED Physician Xavier Rios HPI: 09/22 02:21 This 28 yrs old Male presents to ER via EMS with complaints of abdominal snw cramping. 02:21 The patient presents to the emergency department with vomiting, diarrhea. snw Historical: - Allergies: 09/21 22:55 No Known Allergies; jb4 - Home Meds: 22:55 Albuterol Inhl [Active]; jb4 - PMHx: 22:55 Asthma; Hypertension; GERD; jb4 - PSHx: 22:55 None; jb4 - Immunization history:: Adult Immunizations. - Ebola Screening: : No symptoms or risks identified at this time. - Social history:: Smoking status: Patient/guardian denies using tobacco, never smoked. ROS: 09/22 01:05 Constitutional: Negative for fever, chills, and weight loss, Eyes: Negative for injury, snw pain, redness, and discharge, ENT: Negative for injury, pain, and discharge, Neck: Negative for injury, pain, and swelling, Cardiovascular: Negative for chest pain, palpitations, and edema, Respiratory: Negative for shortness of breath, cough, wheezing, and pleuritic chest pain, Back: Negative for injury and pain, : Negative for injury, bleeding, discharge, and swelling, MS/Extremity: Negative for injury and deformity, Skin: Negative for injury, rash, and discoloration, Neuro: Negative for headache, weakness, numbness, tingling, and seizure. Abdomen/GI: Positive for abdominal pain, nausea, vomiting, and diarrhea, with blood noted to both. Exam: 02:26 Constitutional: This is a well developed, well nourished patient who is awake, alert, snw and in no acute distress. Head/Face: Normocephalic, atraumatic. Eyes: Pupils equal round and reactive to light, extra-ocular motions intact. Lids and lashes normal. Conjunctiva and sclera are non-icteric and not injected. Cornea within normal limits. Periorbital areas with no swelling, redness, or edema. ENT: Nares patent. No nasal discharge, no septal abnormalities noted. Tympanic membranes are normal and external auditory canals are clear. Oropharynx with no redness, swelling, or masses, exudates, or evidence of obstruction, uvula midline. Mucous membranes moist. Neck: Trachea midline, no thyromegaly or masses palpated, and no cervical lymphadenopathy. Supple, full range of motion without nuchal rigidity, or vertebral point tenderness. No Meningismus. Chest/axilla: Normal chest wall appearance and motion. Nontender with no deformity. No lesions are appreciated. Cardiovascular: Regular rate and rhythm with a normal S1 and S2. No gallops, murmurs, or rubs. Normal PMI, no JVD. No pulse deficits. Respiratory: Lungs have equal breath sounds bilaterally, clear to auscultation and percussion. No rales, rhonchi or wheezes noted. No increased work of breathing, no retractions or nasal flaring. Abdomen/GI: Soft, non-tender, with normal bowel sounds. No distension or tympany. No guarding or rebound. No evidence of tenderness throughout. Back: No spinal tenderness. No costovertebral tenderness. Full range of motion. Skin: Warm, dry with normal turgor. Normal color with no rashes, no lesions, and no evidence of cellulitis. MS/ Extremity: Pulses equal, no cyanosis. Neurovascular intact. Full, normal range of motion. Neuro: Awake and alert, GCS 15, oriented to person, place, time, and situation. Cranial nerves II-XII grossly intact. Motor strength 5/5 in all extremities. Sensory grossly intact. Cerebellar exam normal. Normal gait. Psych: Awake, alert, with orientation to person, place and time. Behavior, mood, and affect are within normal limits. Vital Signs: 09/21 22:55 BP 149 / 103; Pulse 98; Resp 16; Temp 98.7(O); Pulse Ox 96% on R/A; Weight 136.08 kg jb4 (R); Height 6 ft. 1 in. (185.42 cm) (R); Pain 2/10; 23:15 BP 142 / 82; Pulse 94; Resp 18 S; Pulse Ox 97% on R/A; cc3 09/22 00:30 BP 133 / 82; Pulse 87; Resp 19 S; Pulse Ox 97% on R/A; cc3 01:15 BP 139 / 75; Pulse 85; Resp 18 S; Pulse Ox 96% on R/A; cc3 02:18 BP 134 / 77; Pulse 88; Resp 16 S; Pulse Ox 96% on R/A; cc3 09/21 22:55 Body Mass Index 39.58 (136.08 kg, 185.42 cm) jb4 MDM: 00:43 Patient medically screened. snw 02:32 Data reviewed: vital signs, nurses notes. Data interpreted: Pulse oximetry: on room air snw is 96 %. Interpretation: normal. Counseling: I had a detailed discussion with the patient and/or guardian regarding: the historical points, exam findings, and any diagnostic results supporting the discharge/admit diagnosis, the presence of at least one elevated blood pressure reading (>120/80) during this emergency department visit, lab results, radiology results, the need for outpatient follow up, to return to the emergency department if symptoms worsen or persist or if there are any questions or concerns that arise at home. Special discussion: Based on the patient's Hx, exam, and Dx evaluation, there is no indication for emergent surgery or inpatient Tx. It is understood by the patient/guardian that if the Sx's persist or worsen they need to return immediately for re-evaluation. I have referred the patient to see his PCP for further evaluation of high blood pressure. Based on the history and exam findings, there is no indication for further emergent testing or inpatient evaluation. I discussed with the patient/guardian the need to see the emergency medical services coordinator for further evaluation of the symptoms. I discussed with the patient/guardian the need to see the primary care provider for further evaluation of the symptoms. 09/21 23:43 Order name: Basic Metabolic Panel; Complete Time: 01: snw 09/21 23:43 Order name: CT Stone Protocol snw 09/21 23:43 Order name: CBC with Diff; Complete Time: 01:00 snw 09/21 23:43 Order name: Hepatic Function; Complete Time: : snw 09/21 23:43 Order name: Lipase; Complete Time: 01: snw 09/21 23:43 Order name: IV Saline Lock; Complete Time: 01:06 snw 09/21 23:43 Order name: Labs collected and sent; Complete Time: 01: snw 09/22 02:21 Order name: PO challenge; Complete Time: 02:53 snw Administered Medications: 01:00 Drug: Zofran 4 mg Route: PO; cc3 01:37 Follow up: Response: No adverse reaction; Nausea is decreased cc3 01:00 Drug: ProTONIX 40 mg Route: IVP; Site: left antecubital; cc3 01:36 Follow up: Response: No adverse reaction; Pain is decreased cc3 02:40 Drug: Bentyl 20 mg Route: PO; jb4 03:00 Follow up: Response: No adverse reaction cc3 Disposition: 03:28 Co-signature as Attending Physician, Xavier Rios MD. rn Disposition: 09/22/18 02:29 Discharged to Home. Impression: Upper abdominal pain, unspecified, Gastro-esophageal reflux disease. - Condition is Stable. - Discharge Instructions: Abdominal Pain, Adult, Gastroesophageal Reflux Disease, Adult, Hemorrhoids, Hypertension, Peptic Ulcer, How to Take a Sitz Bath, Upper Endoscopy, Rehydration, Adult. - Prescriptions for Bentyl 20 mg Oral Tablet - take 1 tablet by ORAL route every 6 hours As needed; 20 tablet. Carafate 1 gram Oral Tablet - take 1 tablet by ORAL route 4 times per day take on an empty stomach, beginning on waking and last dose at bedtime; 100 tablet. Protonix 40 mg Oral Tablet - take 1 tablet by ORAL route once daily; 30 tablet. Miralax 17 gram/dose Oral - take 1 packet by ORAL route once daily dilute powder in 8 ounces of water or juice; 1 box. - Work release form, Medication Reconciliation Form, Thank You Letter, Antibiotic Education, Prescription Opioid Use form. - Follow up: Private Physician; When: 5 - 6 days; Reason: Recheck today's complaints, Continuance of care, Re-evaluation by your physician. Follow up: Ron Mondragon MD; When: 2 - 3 days; Reason: Recheck today's complaints, Continuance of care. Signatures: Dispatcher [employer] EDMS Zehra Aguilar FNP-C COMMODITY BUYER-Csnw Xavier Rios MD MD rn Bryson, James, RN RN jb4 Ira Prajapati cc3 Corrections: (The following items were deleted from the chart) 03:08 02:29 09/22/2018 02:29 Discharged to Home. Impression: Upper abdominal pain, cc3 unspecified; Gastro-esophageal reflux disease. Condition is Stable. Forms are Medication Reconciliation Form, Thank You Letter, Antibiotic Education, Prescription Opioid Use. Follow up: Private Physician; When: 5 - 6 days; Reason: Recheck today's complaints, Continuance of care, Re-evaluation by your physician. Follow up: Ron Mondragon; When: 2 - 3 days; Reason: Recheck today's complaints, Continuance of care. snw
[2018-09-22] MEDS ORDERED: DICYCLOMINE HCL 10 MG CAP ONE ×2 (02:57→02:59)
--- NOTE | 2018-09-22 11:53 | RAD REPORT ---
EXAM DESCRIPTION: CT abdomen pelvis without IV contrast CLINICAL HISTORY: 28-year-old male with abdominal pain, vomiting, chest pain with breathing, diarrhe a TECHNIQUE: Axial CT imaging of the abdomen and pelvis was performed. Sagittal and coronal reconstr ucted images were then performed. The CT study is performed according to ALARA (as low as reasonably achievable) or ALARA/IMAGE GENTLY, with automatic adjustment of mA and/or kV according to patient siz e. Performed on: 09/22/2018 at 12:53 AM COMPARISON: None. FINDINGS: Lung bases: There is mild left basilar atelectasis. Otherwise, the lung bases are clear. Liver: The liver is mildly enlarged and measures 20 cm in craniocaudal dimension. No focal hepatic ab normalities are appreciated on this unenhanced scan. Liver attenuation is within normal limits. Spleen: The spleen is normal is size, configuration and attenuation. No focal splenic abnormalities a re appreciated on this unenhanced scan. Gallbladder and bile duct: The gallbladder is well distended and unremarkable. There is no biliary ductal dilatation. Pancreas: The pancreas is grossly normal in size and configuration. Adrenal Glands: The adrenal glands are normal in size and configuration. Kidneys: The kidneys are normal in size and configuration. There is no evidence of hydronephrosis. Th ere is no evidence of nephrolithiasis. No focal renal abnormalities are identified. Stomach: The stomach is grossly normal. There is no definite hiatal hernia. Bowel: The bowel gas pattern is non specific and non obstructive. Appendix: There is no CT evidence to suggest acute appendicitis. Free air: There is no evidence of free air. Free fluid: There is no evidence of free fluid. Vasculature: The aorta is normal in caliber and contour. The inferior vena cava is grossly unremarkab le. Lymphadenopathy: No pathologic lymphadenopathy is identified. Bladder: The bladder is well distended and smooth in contour. Reproductive: The prostate gland is grossly within normal limits. Bones: No acute osseous abnormalities are identified. Soft tissues: No focal soft tissue abnormalities are identified. IMPRESSION: 1. No evidence of acute intra-abdominal or intrapelvic pathology. There is no evidence o f bowel obstruction. 2. Mild hepatomegaly. Electronically signed by: Katherin Candelaria DO 09/22/2018 1:52 AM [employer] Due to temporary technical issues with the PACS/Fluency reporting system, reports are being signed by the in house radiologist as a courtesy to ensure prompt reporting. The interpreting radiologist is f ully responsible for the content of the report.
== END 2018-09-22 03:08 | disposition home or self-care (01) ==
LOC: ER 22:57
DX: K21.9 Gastro-esophageal reflux disease without esophagitis (principal); I10 Essential (primary) hypertension; J45.909 Unspecified asthma, uncomplicated
CPT/HCPCS: 36415; 74176; 76377; 80048; 80076; 83690; 85025; 96374; 99284; C9113

== ENCOUNTER 2022-05-24 21:30 | Emergency (ER) | payer SELFPAY ==
[2022-05-24] MEDS ORDERED: FAMOTIDINE 20 MG/2 ML VIAL IV ONE (21:55)
[2022-05-24] MEDS ORDERED: LIDOCAINE VISCOUS 2% SOLN 15 ML UDC ONE (21:55)
[2022-05-24] MEDS ORDERED: MAGNES/ALUMIN/SIMET 30ML UCUP ONE (21:55)
[2022-05-24 22:05] LABS: Absolute Lymphocytes (CBC) 2.4 K/uL (0.7-4.9); Hematocrit 41.5 % (39.6-49.0); Lymphocytes % 25.4 % (15.3-44.8); MCV 90.8 fL (80-100); MPV 6.6 fL (7.6-11.3); RBC Red Blood Cell Count 4.57 M/uL (4.33-5.43)
[2022-05-24 22:23] LABS: Bilirubin Total 0.3 mg/dL (0.2-1.0); Potassium 3.8 mmol/L (3.5-5.1); Protein, Total 7.7 g/dL (6.4-8.2)
[2022-05-24] MEDS ORDERED: MORPHINE 4 MG/ML SYR ONE (22:25)
--- NOTE | 2022-05-24 23:17 | RAD REPORT ---
EXAM DESCRIPTION: CTAbdomen Pelvis W Contrast - 05/24/2022 10:55 pm CLINICAL HISTORY: Abdominal pain. abd pain COMPARISON: No comparisons TECHNIQUE: Biphasic CT imaging of the abdomen and pelvis was performed with 100 ml non-ionic IV cont rast. All CT scans are performed using dose optimization technique as appropriate and may include automated exposure control or mA/KV adjustment according to patient size. FINDINGS: The lung bases are clear. The liver, spleen, pancreas, adrenal glands and kidneys are within normal limits. No bowel obstruction, free air, free fluid or abscess. 5 cm length of mid transverse colon demonstrat es moderate inflammation. A prominent diverticulum is present in the region. The pattern of wall thic kening is somewhat nodular. The appendix is normal. Small fat containing umbilical hernia. No evidenc e of significant lymphadenopathy. No suspicious bony findings. IMPRESSION: Focal 5 cm length of mid transverse colon demonstrates moderate inflammation in the pres ence of a diverticulum. This may represent diverticulitis. However, followup colonoscopy would be recommended after appropriate treatment to exclude underlying mass lesion, which can have a similar appearance. .
--- NOTE | 2022-05-24 23:36 | EDPHYS ---
Physician Documentation [facility] Name: Graham Rosenbaum Age: 31 yrs Sex: Male : 1990 Arrival Date: 05/24/2022 Time: 21:33 Bed 14 Private MD: ED Physician Xavier Rios HPI: 05/24 21:47 This 31 yrs old Male presents to ER via Ambulatory with complaints of rn Abdominal Pain. 21:47 The patient presents with abdominal pain. rn 21:47 Onset: The symptoms/episode began/occurred this morning. The symptoms do not radiate. rn Associated signs and symptoms: Pertinent positives: anorexia, nausea, Pertinent negatives: blood in stools, chest pain, constipation, diarrhea, dysuria, fever, shortness of breath, vomiting blood. The symptoms are described as achy. Modifying factors: The symptoms are alleviated by nothing, the symptoms are aggravated by food, touching the area. Severity of pain: At its worst the pain was moderate in the emergency department the pain has improved. The patient has experienced similar episodes in the past. The patient has not recently seen a physician. Pt reports upper abd pain, began this AM, assoc with anorexia and worse with touching area. + hx of ulcers and [facility], but out for 2 weeks and stopped taking it. No fever. . Historical: - Allergies: 21:46 No Known Allergies; eh3 - Home Meds: 21:46 Albuterol Inhl [Active]; eh3 - PMHx: 21:46 Asthma; GERD; Hypertension; Ulcer; eh3 - Immunization history:: Adult Immunizations up to date. - Social history:: Smoking status: Patient denies any tobacco usage or history of. Patient/guardian denies using alcohol. - Family history:: not pertinent. - Hospitalizations: : No recent hospitalization is reported. ROS: 21:47 Constitutional: Negative for fever, chills, and weight loss, Eyes: Negative for injury, rn pain, redness, and discharge, Neck: Negative for injury, pain, and swelling, Cardiovascular: Negative for chest pain, palpitations, and edema, Respiratory: Negative for shortness of breath, cough, wheezing, and pleuritic chest pain, Abdomen/GI: + abd pain and anorexia Back: Negative for injury and pain, MS/Extremity: Negative for injury and deformity, Skin: Negative for injury, rash, and discoloration, Neuro: Negative for headache, weakness, numbness, tingling, and seizure. Exam: 21:47 Constitutional: This is a well developed, well nourished patient who is awake, alert, rn and in no acute distress. Head/Face: Normocephalic, atraumatic. Cardiovascular: Regular rate and rhythm. No pulse deficits. Respiratory: No increased work of breathing, no retractions or nasal flaring. Abdomen/GI: Soft, mild epigastric tenderness, no rebound Skin: Warm, dry MS/ Extremity: Pulses equal, no cyanosis. Neuro: Awake and alert, GCS 15 Vital Signs: 21:45 BP 136 / 79; Pulse 66; Resp 18; Temp 98.1(O); Pulse Ox 99% on R/A; Weight 126.1 kg; 3 Height 6 ft. 1 in. (185.42 cm); Pain 7/10; 23:04 BP 124 / 82; Pulse 70; Resp 20; Pulse Ox 100% ; kb3 21:45 Body Mass Index 36.68 (126.10 kg, 185.42 cm) 3 MDM: 21:34 Patient medically screened. rn 23:33 Differential diagnosis: cholecystitis, Cholelithiasis, diverticulitis, gastritis, rn gastroesophageal reflux disease, non-specific abd pain, pancreatitis, Peptic Ulcer Disease. Data reviewed: vital signs, nurses notes, lab test result(s), radiologic studies, CT scan, and as a result, I will discharge patient. Counseling: I had a detailed discussion with the patient and/or guardian regarding: the historical points, exam findings, and any diagnostic results supporting the discharge/admit diagnosis, lab results, radiology results, the need for outpatient follow up, to return to the emergency department if symptoms worsen or persist or if there are any questions or concerns that arise at home. Response to treatment: the patient's symptoms have mildly improved after treatment, and as a result, I will discharge patient. Special discussion: I discussed with the patient/guardian in detail that at this point there is no indication for admission to the hospital. It is understood, however, that if the symptoms persist or worsen the patient needs to return immediately for re-evaluation. I discussed with the patient the need to follow-up with the PCP/specialist for the noted incidental finding on X-ray/CT scanning. Based on the history and exam findings, there is no indication for further emergent testing or inpatient evaluation. I discussed with the patient/guardian the need to see the inlayer for further evaluation of the symptoms. ED course: Pt with short-segment area of colonic inflammation, will dc home with abx, gave him print out of results to take to GI in a few weeks given atypical area of inflammation and needs scope to rule out other pathology. . 05/24 21:46 Order name: CBC with Diff; Complete Time: 22:21 rn 05/24 21:46 Order name: CMP; Complete Time: 22:30 rn 05/24 21:46 Order name: Lipase; Complete Time: 22:30 rn 05/24 21:46 Order name: CT Abd/Pelvis - IV Contrast Only; Complete Time: 23:28 rn 05/24 21:46 Order name: IV Saline Lock; Complete Time: 21:51 rn 05/24 21:46 Order name: Labs collected and sent; Complete Time: 21:51 rn Administered Medications: 22:00 Drug: Pepcid (famotidine) 20 mg Route: IVP; Site: right antecubital; kb3 22:23 Follow up: Response: No adverse reaction kb3 22:00 Drug: GI Cocktail without - (Maalox Suspension 30 ml, Lidocaine Liquid 2 % 15 kb3 ml) Route: PO; 22:23 Follow up: Response: No adverse reaction kb3 22:30 Drug: morphine 4 mg Route: IVP; Infused Over: 4 mins; Site: right antecubital; kb3 23:04 Follow up: Response: No adverse reaction; Pain is decreased kb3 23:50 Drug: Flagyl (metroNIDAZOLE) 500 mg Volume: 100 ml; Route: IVPB; Rate: 200 ml/hr; kb3 Infused Over: 30 mins; Site: right antecubital; 05/25 00:31 Follow up: IV Status: Completed infusion tw5 05/24 23:50 Drug: [place] (HYDROcodone-acetaminophen) 10 mg-325 mg 1 tabs Route: PO; kb3 05/25 00:31 Follow up: Response: No adverse reaction tw5 00:31 Drug: Cipro (ciprofloxacin) 400 mg Volume: 200 ml; Route: IVPB; Infused Over: 60 mins; tw5 Site: right antecubital; 01:43 Follow up: IV Status: Completed infusion tw5 Disposition Summary: 05/24/22 23:35 Discharge Ordered Location: Home rn Problem: new rn Symptoms: have improved rn Condition: Stable rn Diagnosis - Diverticulitis of large intestine without perforation or abscess without bleeding rn Followup: rn - With: Rosalino Maguire MD - When: As needed - Reason: Recheck today's complaints, Re-evaluation by your physician Discharge Instructions: - Discharge Summary Sheet rn - Diverticulitis rn Forms: - Medication Reconciliation Form rn - Thank You Letter rn - Antibiotic rn spine - Prescription Opioid Use rn Prescriptions: - Flagyl 500 mg Oral Tablet - take 1 tablet by ORAL route every 8 hours for 10 days; 30 tablet; Refills: 0, rn Product Selection Permitted - Cipro 500 mg Oral Tablet - take 1 tablet by ORAL route every 12 hours for 10 days; 20 tablet; Refills: 0, rn Product Selection Permitted Signatures: Dispatcher [employer] Xavier Bernstein MD MD rn Wood, Tiffany tw5 Cely Feldman RN RN eh3 Iman Chaves RN RN kb3
--- NOTE | 2022-05-24 23:36 | ER ---
Nurse's Notes [facility] Name: Graham Rosenbaum Age: 31 yrs Sex: Male : 1990 Arrival Date: 05/24/2022 Time: 21:33 Bed 14 Private MD: Diagnosis: Diverticulitis of large intestine without perforation or abscess without bleeding Presentation: 05/24 21:45 Chief complaint: Patient states: epigastric pain since this morning. Coronavirus eh3 screen: Vaccine status: Patient reports receiving the 2nd dose of the covid vaccine. Ebola Screen: No symptoms or risks identified at this time. Initial Sepsis Screen: Does the patient meet any 2 criteria? No. Patient's initial sepsis screen is negative. Does the patient have a suspected source of infection? No. Patient's initial sepsis screen is negative. Risk Assessment: Do you want to hurt yourself or someone else? Patient reports no desire to harm self or others. Onset of symptoms was May 24, 2022. 21:45 Method Of Arrival: Ambulatory [facility] 21:45 Acuity: SAMANTHA 4 eh3 Triage Assessment: 21:46 General: Appears in no apparent distress. uncomfortable, Behavior is calm, cooperative, eh3 appropriate for age. Pain: Complains of pain in epigastric area Pain does not radiate. Pain currently is 7 out of 10 on a pain scale. Quality of pain is described as dull, Pain began suddenly, 1 day ago. Is continuous, Alleviated by nothing. EENT: No signs and/or symptoms were reported regarding the EENT system. Neuro: Level of Consciousness is awake, alert, obeys commands, Oriented to person, place, time, situation. Cardiovascular: Capillary refill < 3 seconds Patient's skin is warm and dry. Respiratory: Airway is patent Respiratory effort is even, unlabored, Respiratory pattern is regular, symmetrical. GI: Abdomen is round non-distended, Reports upper abdominal pain. : No signs and/or symptoms were reported regarding the genitourinary system. Derm: No signs and/or symptoms reported regarding the dermatologic system. Musculoskeletal: Circulation, motion, and sensation intact. Range of motion: intact in all extremities. Historical: - Allergies: 21:46 No Known Allergies; eh3 - Home Meds: 21:46 Albuterol Inhl [Active]; eh3 - PMHx: 21:46 Asthma; GERD; Hypertension; Ulcer; eh3 - Immunization history:: Adult Immunizations up to date. - Social history:: Smoking status: Patient denies any tobacco usage or history of. Patient/guardian denies using alcohol. - Family history:: not pertinent. - Hospitalizations: : No recent hospitalization is reported. Screenin:45 Abuse screen: Denies threats or abuse. Denies injuries from another. Nutritional kb3 screening: No deficits noted. Tuberculosis screening: No symptoms or risk factors identified. Fall Risk None identified. Assessment: 21:45 General: Appears in no apparent distress. uncomfortable, Behavior is calm, cooperative, kb3 See triage note. 21:45 Pain: Complains of pain in epigastric area Pain does not radiate. Pain currently is 8 kb3 out of 10 on a pain scale. Quality of pain is described as burning, sharp, stabbing, Pain began 2-3 days ago. Is continuous, Aggravated by eating, drinking. GI: Bowel sounds present X 4 quads. Abd is soft Abdomen is tender to palpation in epigastric area. 23:03 General:. kb3 Vital Signs: 21:45 BP 136 / 79; Pulse 66; Resp 18; Temp 98.1(O); Pulse Ox 99% on R/A; Weight 126.1 kg; 3 Height 6 ft. 1 in. (185.42 cm); Pain 7/10; 23:04 BP 124 / 82; Pulse 70; Resp 20; Pulse Ox 100% ; kb3 21:45 Body Mass Index 36.68 (126.10 kg, 185.42 cm) 3 ED Course: 21:33 Patient arrived in ED. jj6 21:34 Xavier Rios MD is Attending Physician. rn 21:45 Patient has correct armband on for positive identification. Bed in low position. Call kb3 light in reach. Side rails up X 1. Warm blanket given. 21:45 No provider procedures requiring assistance completed. Inserted saline lock: 20 gauge kb3 in right antecubital area, using aseptic technique. Blood collected. 21:46 Triage completed. 3 21:46 Arm band placed on right wrist. eh3 21:51 Iman Chaves, RN is Primary Nurse. kb3 21:51 CBC with Diff Sent. kb3 21:51 CMP Sent. kb3 21:51 Lipase Sent. kb3 22:[address] via wheelchair. kb3 22:56 CT Abd/Pelvis - IV Contrast Only In Process Unspecified. EDMS 23:03 Patient moved back from CT. kb3 23:35 Rosalino Maguire MD is Referral Physician. rn 05/25 01:43 IV discontinued, intact, bleeding controlled, No redness/swelling at site. Pressure tw5 dressing applied. Administered Medications: 05/24 22:00 Drug: Pepcid (famotidine) 20 mg Route: IVP; Site: right antecubital; kb3 22:23 Follow up: Response: No adverse reaction kb3 22:00 Drug: GI Cocktail without - (Maalox Suspension 30 ml, Lidocaine Liquid 2 % 15 kb3 ml) Route: PO; 22:23 Follow up: Response: No adverse reaction kb3 22:30 Drug: morphine 4 mg Route: IVP; Infused Over: 4 mins; Site: right antecubital; kb3 23:04 Follow up: Response: No adverse reaction; Pain is decreased kb3 23:50 Drug: Flagyl (metroNIDAZOLE) 500 mg Volume: 100 ml; Route: IVPB; Rate: 200 ml/hr; kb3 Infused Over: 30 mins; Site: right antecubital; 05/25 00:31 Follow up: IV Status: Completed infusion tw5 05/24 23:50 Drug: [place] (HYDROcodone-acetaminophen) 10 mg-325 mg 1 tabs Route: PO; kb3 05/25 00:31 Follow up: Response: No adverse reaction tw5 00:31 Drug: Cipro (ciprofloxacin) 400 mg Volume: 200 ml; Route: IVPB; Infused Over: 60 mins; tw5 Site: right antecubital; 01:43 Follow up: IV Status: Completed infusion tw5 Medication: 05/24 21:45 VIS not applicable for this client. kb3 Outcome: 23:35 Discharge ordered by . rn 05/25 01:10 Discharged to home ambulatory, with friend. tw5 Condition: improved Discharge instructions given to patient, Instructed on discharge instructions, follow up and referral plans. medication usage, Demonstrated understanding of instructions, follow-up care, medications, Prescriptions given X 2. 01:43 Patient left the ED. tw5 Signatures: Dispatcher [employer] EDMS Xavier Rios MD MD rn Wood, Tiffany tw5 Elda Chin jj6 Cely Feldman RN RN eh3 Iman Chaves RN RN kb3 Corrections: (The following items were deleted from the chart) 05/24 21:57 21:45 BP 136 / 79; Pulse 66bpm; Resp 18bpm; Pulse Ox 99% RA; Temp 98.1F Oral; Pain eh3 02/04; eh3
[2022-05-24] MEDS ORDERED: HYDROCODONE/APAP 10/325 TAB ONE (23:44)
[2022-05-24] MEDS ORDERED: CIPROFLOXACIN 400mg IV 400 MG/200 ML BAG IV ONE (23:44)
[2022-05-24] MEDS ORDERED: METRONIDAZOLE 500mg IVPB 500 MG/100 ML BAG IV ONE (23:44)
[2022-05-25 01:50] VITALS: TEMP 98.1
[2022-05-25 01:51] VITALS: BP 124/82; O2SAT 100
== END 2022-05-25 01:43 | disposition home or self-care (01) ==
LOC: ER 21:30
DX: K57.32 Diverticulitis of large intestine without perforation or abscess without bleeding (principal)
CPT/HCPCS: 36415; 74177; 80053; 83690; 85025; 96365; 96367; 96375; 99284; J0744; Q9967

== ENCOUNTER 2022-09-30 11:29 | Emergency (ER) | payer SELFPAY ==
[2022-09-30 12:22] LABS: Urine Blood Trace-intact (Negative); Urine Glucose Negative (Negative); Urine Protein Negative (Negative); Urine pH 7.5 (5.0-7.0)
--- NOTE | 2022-09-30 12:53 | ER ---
Nurse's Notes [facility] Name: Graham Rosenbaum Age: 32 yrs Sex: Male : 1990 Arrival Date: 09/30/2022 Time: 11:30 Bed 9 Private MD: Diagnosis: Penile Pain Presentation: 09/30 11:46 Chief complaint: Patient states: had intercourse on Saturday "may have hit too hard vg1 but when I did it went limp" States has not been able to have an erection since and has intermittent throbbing. Coronavirus screen: Vaccine status: Patient reports receiving the 2nd dose of the covid vaccine. Client denies travel out of the [place] in the last 14 days. Ebola Screen: Patient negative for fever greater than or equal to 101.5 degrees Fahrenheit, and additional compatible Ebola Virus Disease symptoms. Initial Sepsis Screen: Does the patient meet any 2 criteria? No. Patient's initial sepsis screen is negative. Does the patient have a suspected source of infection? No. Patient's initial sepsis screen is negative. Risk Assessment: Do you want to hurt yourself or someone else? Patient reports no desire to harm self or others. Onset of symptoms was September 26, 2022. 11:46 Method Of Arrival: Ambulatory vg1 11:46 Acuity: SAMANTHA 3 vg1 Triage Assessment: 11:50 General: Appears uncomfortable, Behavior is calm, cooperative. Pain: Complains of pain vg1 in groin Pain currently is 5 out of 10 on a pain scale. Pain began 09/26/22. : Denies burning with urination, discharge, pain. Historical: - Allergies: 11:50 No Known Allergies; vg1 - Home Meds: 11:50 Albuterol Inhl [Active]; vg1 - PMHx: 11:50 Asthma; GERD; Hypertension; ULCER; vg1 - PSHx: 11:50 Left Hand; vg1 - Immunization history:: Client reports receiving the 2nd dose of the Covid vaccine. - Social history:: Smoking status: Patient denies any tobacco usage or history of. Vital Signs: 11:46 BP 141 / 79; Pulse 65; Resp 16; Temp 98.1(O); Pulse Ox 100% on R/A; Weight 120.2 kg; vg1 Height 6 ft. 1 in. (185.42 cm); Pain 6/10; 11:46 Body Mass Index 34.96 (120.20 kg, 185.42 cm) vg1 ED Course: 11:30 Patient arrived in ED. am2 11:32 Aaron Gutierrez MD is Attending Physician. kdr 11:50 Triage completed. vg1 11:50 Arm band placed on. vg1 12:21 Urine collected: clean catch specimen, clear. tm3 12:30 Rhea Munoz, RN is Primary Nurse. jl7 12:[address] Loyola urologist with Dr. Gutierrez for patient consultation. eb 12:50 Rajeev Hector MD is Referral Physician. kdr 13:36 Patient has correct armband on for positive identification. jl7 13:36 No provider procedures requiring assistance completed. Patient did not have IV access jl7 during this emergency room visit. Administered Medications: No medications were administered Medication: 13:36 VIS not applicable for this client. jl7 Outcome: 12:52 Discharge ordered by . kdr 13:36 Discharged to home ambulatory. jl7 13:36 Condition: stable 13:36 Discharge instructions given to patient, Instructed on discharge instructions, follow up and referral plans. Demonstrated understanding of instructions, follow-up care. 13:36 Patient left the ED. jl7 Signatures: Carley Kemar tm3 Aaron Gutierrez MD MD kdr Rhea Munoz, RN RN jl7 Irina Palm am2 Shelly Navas Victoria RN RN vg1
--- NOTE | 2022-09-30 12:53 | EDPHYS ---
Physician Documentation [facility] Name: Graham Rosenbaum Age: 32 yrs Sex: Male : 1990 Arrival Date: 09/30/2022 Time: 11:30 Bed 9 Private MD: ED Physician Aaron Gutierrez HPI: 09/30 14:00 This 32 yrs old Male presents to ER via Ambulatory with complaints of Penile kdr Pain. 14:00 The patient presents with Penis pain. Onset: The symptoms/episode began/occurred kdr Patient indicated that he was having intercourse last Saturday evening when he experienced trauma to his penis. At the time of the initial trauma, he had immediate discomfort but did not report any kind of popping sensation. Subsequently has not had any swelling or ecchymosis. Overall the pain has improved however he still has intermittent transient pain. Since then he has been unable to obtain a full erection or maintain an erection to the extent he can currently get an erection.. Modifying factors: The symptoms are alleviated by nothing, the symptoms are aggravated by. Historical: - Allergies: 11:50 No Known Allergies; vg1 - Home Meds: 11:50 Albuterol Inhl [Active]; vg1 - PMHx: 11:50 Asthma; GERD; Hypertension; ULCER; vg1 - PSHx: 11:50 Left Hand; vg1 - Immunization history:: Client reports receiving the 2nd dose of the Covid vaccine. - Social history:: Smoking status: Patient denies any tobacco usage or history of. ROS: 14:07 Constitutional: Negative for fever, chills, and weight loss, Eyes: Negative for injury, kdr pain, redness, and discharge, ENT: Negative for injury, pain, and discharge, Neck: Negative for injury, pain, and swelling, Cardiovascular: Negative for chest pain, palpitations, and edema, Respiratory: Negative for shortness of breath, cough, wheezing, and pleuritic chest pain, Abdomen/GI: Negative for abdominal pain, nausea, vomiting, diarrhea, and constipation, Back: Negative for injury and pain, MS/Extremity: Negative for injury and deformity, Skin: Negative for injury, rash, and discoloration, Neuro: Negative for headache, weakness, numbness, tingling, and seizure activity. Psych: Negative for depression, anxiety, suicide ideation, homicidal ideation, and hallucinations, Allergy/Immunology: Negative for hives, rash, and allergies, Endocrine: Negative for neck swelling, polydipsia, polyuria, polyphagia, and marked weight changes, Hematologic/Lymphatic: Negative for swollen nodes, abnormal bleeding, and unusual bruising. 14:07 : Positive for penile pain. Exam: 14:07 Constitutional: This is a well developed, well nourished patient who is awake, alert, kdr and in no acute distress. Head/Face: Normocephalic, atraumatic. Eyes: Pupils equal round and reactive to light, extra-ocular motions intact. Lids and lashes normal. Conjunctiva and sclera are non-icteric and not injected. Cornea within normal limits. Periorbital areas with no swelling, redness, or edema. Neck: Trachea midline, no thyromegaly or masses palpated, and no cervical lymphadenopathy. Supple, full range of motion without nuchal rigidity, or vertebral point tenderness. No Meningismus. Chest/axilla: Normal chest wall appearance and motion. Nontender with no deformity. No lesions are appreciated. Cardiovascular: Regular rate and rhythm with a normal S1 and S2. No gallops, murmurs, or rubs. Normal PMI, no JVD. No pulse deficits. Respiratory: Lungs have equal breath sounds bilaterally, clear to auscultation and percussion. No rales, rhonchi or wheezes noted. No increased work of breathing, no retractions or nasal flaring. 14:07 : Male external genitalia: normal, Patient is not circumisioned. Vital Signs: 11:46 BP 141 / 79; Pulse 65; Resp 16; Temp 98.1(O); Pulse Ox 100% on R/A; Weight 120.2 kg; vg1 Height 6 ft. 1 in. (185.42 cm); Pain 6/10; 11:46 Body Mass Index 34.96 (120.20 kg, 185.42 cm) vg1 MDM: 12:52 Patient medically screened. [facility] 14:07 Data reviewed: vital signs, nurses notes. Management of patient was discussed with the [facility] following: Actuarial Mathematician: Dr. Loyola covering for Dr. Hector. 14:07 ED course: Patient was stable in the ED and not in any acute pain. I offered to [facility] ultrasound the penis and scrotum prior to discharge but the patient declined and said he would follow-up with Dr. Loyola in the morning.. 09/30 11:32 Order name: Urine Dipstick-Ancillary (obtain specimen); Complete Time: 12:30 kdr 09/30 12:22 Order name: Urine Dipstick-Ancillary EDMS Administered Medications: No medications were administered Disposition Summary: 09/30/22 12:52 Discharge Ordered Location: Home kdr Problem: new kdr Symptoms: are unchanged kdr Condition: Stable kdr Diagnosis - Penile Pain kdr Followup: kdr - With: Rajeev Hector MD - When: 2 - 3 days - Reason: If symptoms return, Further diagnostic work-up, Recheck today's complaints, Continuance of care, Re-evaluation by your physician, Dr. Loyola is covering for . His office number is [phone] Discharge Instructions: - Discharge Summary Sheet kdr - Penile Fracture kdr Forms: - Medication Reconciliation Form kdr - Thank You Letter kdr Signatures: Aaron Gutierrez MD MD kdr Elizabeth Dixon, RN RN vg1
[2022-09-30 13:43] VITALS: BP 141/79; TEMP 98.1; O2SAT 100
== END 2022-09-30 13:36 | disposition home or self-care (01) ==
LOC: ER 11:29
DX: N48.89 Other specified disorders of penis (principal)
CPT/HCPCS: 81003; 99283

== ENCOUNTER 2023-03-03 19:54 | Emergency (ER) | payer BC, SELFPAY ==
--- NOTE | 2023-03-03 20:26 | EDPHYS ---
Physician Documentation [facility] Name: Graham Rosenbaum Age: 32 yrs Sex: Male : 1990 Arrival Date: 03/03/2023 Time: 19:54 Bed IW5 Private MD: ED Physician Ronald Kee HPI: 03/03 20:16 This 32 yrs old Male presents to ER via Unassigned with complaints of Skin sp4 Problem, Rash. 20:22 Patient is a 32-year-old male who presents with bilateral arm rash particularly left sp4 arm antecubital fossa that is a red raised and has been there for the past 3 days. No other complaint. . Historical: - Allergies: 20:21 No Known Allergies; iw - PMHx: 20:20 Asthma; GERD; Hypertension; ULCER; iw - PSHx: 20:20 left hand; iw - Family history:: not pertinent. ROS: 20:22 Constitutional: Negative for fever, chills, and weight loss, Skin: Negative for injury, sp4 positive for red rash and pruritic rash 20:22 All other systems are negative. Exam: 20:22 Constitutional: This is a well developed, well nourished patient who is awake, alert, sp4 and in no acute distress. Head/Face: Normocephalic, atraumatic. Eyes: Pupils equal round and reactive to light, extra-ocular motions intact. Lids and lashes normal. Conjunctiva and sclera are not injected. Cornea within normal limits. Periorbital areas with no swelling, redness, or edema. ENT: Nares patent. No nasal discharge, no septal abnormalities noted. Tympanic membranes are normal and external auditory canals are clear. Oropharynx with no redness, swelling, or masses, exudates, or evidence of obstruction, uvula midline. Mucous membranes moist. Neck: Trachea midline, no thyromegaly or masses palpated, and no cervical lymphadenopathy. Supple, full range of motion without nuchal rigidity, or vertebral point tenderness. Chest/axilla: Normal chest wall appearance and motion. Nontender with no deformity. No lesions are appreciated. Cardiovascular: Regular rate and rhythm with a normal S1 and S2. No gallops, murmurs, or rubs. Normal PMI, no JVD. No pulse deficits. Respiratory: Lungs have equal breath sounds bilaterally, clear to auscultation and percussion. No rales, rhonchi or wheezes noted. No increased work of breathing, no retractions or nasal flaring. Abdomen/GI: Soft, non-tender, with normal bowel sounds. No distension or tympany. No guarding or rebound. No evidence of tenderness throughout. Back: No spinal tenderness. No costovertebral tenderness. Skin: Warm, dry with normal turgor. Normal color with mild red erythematous raised rash consistent with acute allergic dermatitis versus contact dermatitis to left arm , left forearm and also left antecubital fossa MS/ Extremity: Pulses equal, no cyanosis. Neurovascular intact. Full, normal range of motion. Neuro: Awake and alert, GCS 15, oriented to person, place, time, and situation. Cranial nerves II-XII grossly intact. Motor strength 5/5 in all extremities. Sensory grossly intact. Psych: Awake, alert, with orientation to person, place and time. Behavior, mood, and affect are within normal limits Vital Signs: 20:19 BP 144 / 94; Pulse 80; Resp 16; Temp 98; Pulse Ox 98% ; iw MDM: 20:22 Differential diagnosis: impetigo, varicella, allergic reaction, parasite infection. sp4 Data reviewed: vital signs, nurses notes, old medical records. ED course: We will provide p.o. prednisone for the next 5 days will advise Benadryl 3 times a day for redness and itching. 20:25 Patient medically screened. sp4 Administered Medications: 20:53 Drug: predniSONE PO 60 mg Route: PO; iw 21:00 Follow up: Response: No adverse reaction iw 20:53 Drug: diphenhydrAMINE PO 50 mg Route: PO; iw 21:00 Follow up: Response: No adverse reaction iw 20:53 Drug: Famotidine PO 20 mg Route: PO; iw 21:00 Follow up: Response: No adverse reaction iw Disposition Summary: 03/03/23 20:25 Discharge Ordered Location: Home sp4 Problem: new sp4 Symptoms: have improved sp4 Condition: Stable sp4 Diagnosis - Allergic contact dermatitis due to other agents sp4 Followup: sp4 - With: Private Physician - When: 7 - 10 days - Reason: Recheck today's complaints Discharge Instructions: - Discharge Summary Sheet sp4 - Contact Dermatitis sp4 Forms: - Work release form pf1 - Patient Portal Instructions sp4 Prescriptions: - Prednisone 20 mg Oral Tablet - take 2 tablets by ORAL route once daily for 5 days; 10 tablet; Refills: 0, sp4 Product Selection Permitted Signatures: Tiki Tran RN RN iw Potepalov, Sergey, MD MD sp4
--- NOTE | 2023-03-03 20:26 | ER ---
Nurse's Notes [facility] Name: Graham Rosenbaum Age: 32 yrs Sex: Male : 1990 Arrival Date: 03/03/2023 Time: 19:54 Bed IW5 Private MD: Diagnosis: Allergic contact dermatitis due to other agents Presentation: 03/03 20:19 Chief complaint: Patient states: rash to carlos arms X 3 days, itchy. Coronavirus screen: iw At this time, the client does not indicate any symptoms associated with coronavirus-19. Ebola Screen: Patient negative for fever greater than or equal to 101.5 degrees Fahrenheit, and additional compatible Ebola Virus Disease symptoms Patient denies exposure to infectious person. Patient denies travel to an Ebola-affected area in the 21 days before illness onset. No symptoms or risks identified at this time. Initial Sepsis Screen: Does the patient meet any 2 criteria? No. Patient's initial sepsis screen is negative. Does the patient have a suspected source of infection? No. Patient's initial sepsis screen is negative. Risk Assessment: Do you want to hurt yourself or someone else? Patient reports no desire to harm self or others. Onset of symptoms was February 28, 2023. 20:19 Method Of Arrival: Ambulatory iw 20:19 Acuity: SAMANTHA 4 iw Triage Assessment: 20:50 General: Appears in no apparent distress. Behavior is calm, cooperative. iw Historical: - Allergies: 20:21 No Known Allergies; iw - PMHx: 20:20 Asthma; GERD; Hypertension; ULCER; iw - PSHx: 20:20 left hand; iw - Family history:: not pertinent. Screenin:50 [facility] ED Fall Risk Assessment (Adult) History of falling in the last 3 months, iw including since admission No falls in past 3 months (0 pts). Abuse screen: Denies threats or abuse. Denies injuries from another. Nutritional screening: On. Tuberculosis screening: No symptoms or risk factors identified. Assessment: 20:20 General: Appears in no apparent distress. Behavior is calm, cooperative. Pain: Denies iw pain. Neuro: Level of Consciousness is awake, alert, obeys commands, Oriented to person, place, time, situation, Moves all extremities. Full function. Cardiovascular: Patient's skin is warm and dry. Respiratory: Respiratory effort is even, unlabored, Respiratory pattern is regular, symmetrical. Derm: Rash noted that is itchy, red, on right arm and left arm. Musculoskeletal: Range of motion: intact in all extremities. Vital Signs: 20:19 BP 144 / 94; Pulse 80; Resp 16; Temp 98; Pulse Ox 98% ; iw ED Course: 19:57 Patient arrived in ED. am2 20:16 Ronald Kee MD is Attending Physician. sp4 20:20 Triage completed. iw 20:20 Arm band placed on. iw 20:45 Tiki Tran RN is Primary Nurse. iw 20:52 No provider procedures requiring assistance completed. Patient did not have IV access iw during this emergency room visit. Administered Medications: 20:53 Drug: predniSONE PO 60 mg Route: PO; iw 21:00 Follow up: Response: No adverse reaction iw 20:53 Drug: diphenhydrAMINE PO 50 mg Route: PO; iw 21:00 Follow up: Response: No adverse reaction iw 20:53 Drug: Famotidine PO 20 mg Route: PO; iw 21:00 Follow up: Response: No adverse reaction iw Medication: 20:50 VIS not applicable for this client. iw Outcome: 20:25 Discharge ordered by . sp4 20:52 Discharged to home ambulatory. iw 20:52 Condition: good 20:52 Discharge instructions given to patient, Instructed on discharge instructions, follow up and referral plans. medication usage, Demonstrated understanding of instructions, follow-up care, medications, Prescriptions given X 2. 20:53 Patient left the ED. iw Signatures: Tiki Tran RN RN iw Irina Palm am2 Ronald Kee MD MD sp4 Corrections: (The following items were deleted from the chart) 20:20 20:19 Pulse 80bpm; Resp 16bpm; Pulse Ox 98%; iw iw
[2023-03-03] MEDS ORDERED: DIPHENHYDRAMINE 25 MG TAB/CAP ONE (20:57)
[2023-03-03] MEDS ORDERED: predniSONE 20 MG TAB ONE (20:58)
[2023-03-03] MEDS ORDERED: FAMOTIDINE 20 MG TAB ONE (20:58)
[2023-03-03 21:01] VITALS: BP 144/94; TEMP 98; O2SAT 98
== END 2023-03-03 20:53 | disposition home or self-care (01) ==
LOC: ER 19:54
DX: L23.89 Allergic contact dermatitis due to other agents (principal)
CPT/HCPCS: 99283; J7512

== ENCOUNTER → 2023-08-22 | Emergency (ER) | payer BC ==
[~2023-08-22] MED LIST: CODEINE 30MG/APAP 300MG TAB ONE; DICYCLOMINE HCL 10 MG CAP ONE; IBUPROFEN 400 MG TAB ONE; ONDANSETRON 4 MG (ODT) TAB ONE; PROMETHAZINE 25 MG TABLET ONE
--- OUTSIDE RECORDS SUMMARY | 2023-08-22 04:52 | XMS REPORT | Continuity of Care Document ---
Author Name Unknown Address [address] [place] [address] [address] [employer] Address [address] [place] [address] [address] [place] [address] Care Team Providers Care Occupational Safety Specialist Name Role Phone Unavailable Unavailable Unavailable Encounters Start Date/Time End Date/Time Encounter Type Admission Type Attending Clinicians Care Facility Care Department Encounter ID Source 2023-05-09 15:08:33 2023-05-09 15:08:33 Outpatient [facility] [id number] Artur Harrington
[2023-08-22 06:01] LABS: SARS-CoV-2 Antigen Rapid Res Negative (Negative)
--- NOTE | 2023-08-22 06:53 | ER ---
Nurse's Notes [facility] Name: Graham Rosenbaum Age: 33 yrs Sex: Male : 1990 Arrival Date: 08/22/2023 Time: 04:48 Bed IW1 Private MD: Diagnosis: Other specified viral diseases;Acute systemic viral illness, acute common cold, acute viral pharyngitis Presentation: 08/22 05:30 Chief complaint: Patient states: yesterday my throat started itching, around midnight I vc1 got the shake, sweating, my body aches and sharp pain in my upper stomach. 05:30 Coronavirus screen: Vaccine status: Patient reports being unvaccinated. Client denies vc1 travel out of the [place] in the last 14 days. chills, fever, muscle pain, shaking with chills, Client presents with at least one sign or symptom that may indicate coronavirus-19. Ebola Screen: Patient negative for fever greater than or equal to 101.5 degrees Fahrenheit, and additional compatible Ebola Virus Disease symptoms Patient denies exposure to infectious person. Patient denies travel to an Ebola-affected area in the 21 days before illness onset. No symptoms or risks identified at this time. Initial Sepsis Screen: Does the patient meet any 2 criteria? No. Patient's initial sepsis screen is negative. Does the patient have a suspected source of infection? No. Patient's initial sepsis screen is negative. Risk Assessment: Do you want to hurt yourself or someone else? Patient reports no desire to harm self or others. Onset of symptoms was August 22, 2023. 05:30 Method Of Arrival: Ambulatory vc1 05:30 Acuity: SAMANTHA 4 vc1 Triage Assessment: 05:30 General: Appears in no apparent distress. ill, Behavior is calm, cooperative, vc1 appropriate for age. General: Reports chills for fever for feeling ill for. Pain: Complains of pain in left upper quadrant Pain does not radiate. Pain currently is 8 out of 10 on a pain scale. EENT: Reports itchy throat. Neuro: Level of Consciousness is awake, alert, obeys commands, Oriented to person, place, time, situation, Appropriate for age. Cardiovascular: No deficits noted. Respiratory: Airway is patent Respiratory effort is even, unlabored, Respiratory pattern is regular, symmetrical. GI: No deficits noted. No signs and/or symptoms were reported involving the gastrointestinal system. : No deficits noted. No signs and/or symptoms were reported regarding the genitourinary system. Derm: No deficits noted. No signs and/or symptoms reported regarding the dermatologic system. Musculoskeletal: No deficits noted. No signs and/or symptoms reported regarding the musculoskeletal system. Historical: - Allergies: 05:30 No Known Allergies; vc1 - Home Meds: 05:30 Albuterol Inhl [Active]; vc1 - PMHx: 05:30 Asthma; GERD; Hypertension; ULCER; vc1 - PSHx: 05:30 left hand; vc1 - Immunization history:: Client reports having NOT received the Covid vaccine. Flu vaccine is not up to date. - Social history:: Smoking status: Patient denies any tobacco usage or history of. - Family history:: not pertinent. Screenin:43 [facility] ED Fall Risk Assessment (Adult) History of falling in the last 3 months, vc1 including since admission No falls in past 3 months (0 pts) Confusion or Disorientation No (0 pts) Intoxicated or Sedated No (0 pts) Impaired Gait No (0 pts) Mobility Assist Device Used No (0 pt) Altered Elimination No (0 pt) Score/Fall Risk Level 0 - 2 = Low Risk Oriented to surroundings, Maintained a safe environment, Educated pt \T\ family on fall prevention, incl call for assistance when getting out of bed. Abuse screen: Denies threats or abuse. Nutritional screening: No deficits noted. Tuberculosis screening: No symptoms or risk factors identified. Assessment: 07:23 Reassessment: Patient is alert, oriented x 3, equal unlabored respirations, skin aa5 warm/dry/pink. Vital Signs: 05:30 BP 122 / 85; Pulse 111; Resp 20; Temp 99.8; Pulse Ox 95% ; Weight 136.08 kg; Height 6 vc1 ft. 1 in. ; Pain 8/10; 05:30 Body Mass Index 39.58 (136.08 kg, 185.42 cm) vc1 05:30 Pain Scale: Adult vc1 ED Course: 04:54 Patient arrived in ED. gm2 05:20 Ronald Kee MD is Attending Physician. sp4 05:40 Triage completed. vc1 05:43 Arm band placed on right wrist. vc1 07:23 No provider procedures requiring assistance completed. Patient did not have IV access aa5 during this emergency room visit. Administered Medications: 06:03 Not Given (Physician Discretion): tumschewable tablet 800 mg PO once vc1 06:03 Drug: Acetaminophen-Codeine PO (300 mg-30 mg) 2 tabs PO once; RASS on ADMIN: Combtv4, vc1 Very Agttd3, Agttd2, Rstlss1, AlertClm0, Drwsy-1, Lt Sdtn-2, Mod Sdtn-3, Dp Sdtn-4, UnArsble-5 Route: PO; 06:03 Drug: Ondansetron PO 4 mg PO once Route: PO; vc1 06:04 Drug: Dicyclomine PO 20 mg PO once Route: PO; vc1 06:04 Drug: Promethazine PO 25 mg PO once Route: PO; vc1 06:04 Drug: Ibuprofen PO 800 mg PO once Route: PO; vc1 Medication: 05:43 VIS not applicable for this client. vc1 Outcome: 06:53 Discharge ordered by . marcel 07:23 Discharged to home ambulatory, aa5 07:23 Condition: stable 07:23 Discharge instructions given to patient, Instructed on discharge instructions, follow up and referral plans. medication usage, Demonstrated understanding of instructions, follow-up care, medications, Prescriptions given X 5 07:25 Patient left the ED. aa5 Signatures: Fernanda Irving RN RN aa5 Di Crandall RN RN vc1 Ronald Kee MD MD sp4 Anne Ferrell 2 Corrections: (The following items were deleted from the chart) 07:39 07:39 Patient left the ED. aa5 aa5
--- NOTE | 2023-08-22 06:54 | EDPHYS ---
Physician Documentation [facility] Name: Graham Rosenbaum Age: 33 yrs Sex: Male : 1990 Arrival Date: 08/22/2023 Time: 04:48 Bed IW1 Private MD: ED Physician Ronald Kee HPI: 08/22 05:25 This 33 yrs old Male presents to ER via Unassigned with complaints of Flu sp4 Symptoms, Fever, Cough, Sore Throat. 05:26 33-year-old male with history of asthma hypertension, presents with acute onset of sp4 fever cough sore throat. . 06:47 Time onset was in the last 24 hours. Patient developed sore throat at work associated sp4 with shakes chills, body aches, nausea, epigastric pain and fever. Fever reported to be subject. Historical: - Allergies: 05:30 No Known Allergies; vc1 - Home Meds: 05:30 Albuterol Inhl [Active]; vc1 - PMHx: 05:30 Asthma; GERD; Hypertension; ULCER; vc1 - PSHx: 05:30 left hand; vc1 - Immunization history:: Client reports having NOT received the Covid vaccine. Flu vaccine is not up to date. - Social history:: Smoking status: Patient denies any tobacco usage or history of. - Family history:: not pertinent. ROS: 06:47 Constitutional: Positive fever, positive chills, positive body aches, positive sp4 epigastric pain, positive sore throat positive nausea. 06:47 All other systems are negative, Exam: 06:47 Constitutional: This is a well developed, well nourished patient who is awake, alert, sp4 and in no acute distress. Head/Face: Normocephalic, atraumatic. Eyes: Pupils equal round and reactive to light, extra-ocular motions intact. Lids and lashes normal. Conjunctiva and sclera are not injected. Cornea within normal limits. Periorbital areas with no swelling, redness, or edema. ENT: Nares patent. No nasal discharge, no septal abnormalities noted. Tympanic membranes are normal and external auditory canals are clear. Oropharynx with no redness, swelling, or masses, exudates, or evidence of obstruction, uvula midline. Mucous membranes moist. Neck: Trachea midline, no thyromegaly or masses palpated, and no cervical lymphadenopathy. Supple, full range of motion without nuchal rigidity, or vertebral point tenderness. Chest/axilla: Normal chest wall appearance and motion. Nontender with no deformity. No lesions are appreciated. Cardiovascular: Regular rate and rhythm with a normal S1 and S2. No gallops, murmurs, or rubs. Normal PMI, no JVD. No pulse deficits. Respiratory: Lungs have equal breath sounds bilaterally, clear to auscultation and percussion. No rales, rhonchi or wheezes noted. No increased work of breathing, no retractions or nasal flaring. Abdomen/GI: Soft, non-tender, with normal bowel sounds. No distension or tympany. No guarding or rebound. No evidence of tenderness throughout. Back: No spinal tenderness. No costovertebral tenderness. Skin: Warm, dry with normal turgor. Normal color with no rashes, no lesions, and no evidence of cellulitis. MS/ Extremity: Pulses equal, no cyanosis. Neurovascular intact. Full, normal range of motion. Neuro: Awake and alert, GCS 15, oriented to person, place, time, and situation. Cranial nerves II-XII grossly intact. Motor strength 5/5 in all extremities. Sensory grossly intact. Psych: Awake, alert, with orientation to person, place and time. Behavior, mood, and affect are within normal limits Vital Signs: 05:30 BP 122 / 85; Pulse 111; Resp 20; Temp 99.8; Pulse Ox 95% ; Weight 136.08 kg; Height 6 vc1 ft. 1 in. ; Pain 8/10; 05:30 Body Mass Index 39.58 (136.08 kg, 185.42 cm) vc1 05:30 Pain Scale: Adult vc1 MDM: 05:27 Patient medically screened. sp4 06:47 Differential diagnosis: viral Infection, bacterial infection, URI, bronchitis, sp4 pneumonia UTI, meningitis. Data reviewed: vital signs, nurses notes, old medical records, lab test result(s), Flu: negative. Consideration of Admission/Observation Escalation of care including admission/observation considered. ED course: Patient presents with acute onset of flu type symptoms plus sore throat. Patient has signs of mild pharyngitis. Will provide symptomatic medications, Bentyl, Phenergan, also p.o. omeprazole, as well as ibuprofen, will advise 3 days of bedrest away from work. Supplement with OTC Tylenol. Otherwise stable for discharge home. COVID-19 negative today, influenza negative today.. 08/22 05:27 Order name: SARS RAPID; Complete Time: 06:32 sp4 08/22 05:27 Order name: Influenza Screen (a \T\ B); Complete Time: 06:32 sp4 Administered Medications: 06:03 Not Given (Physician Discretion): tumschewable tablet 800 mg PO once vc1 06:03 Drug: Acetaminophen-Codeine PO (300 mg-30 mg) 2 tabs PO once; RASS on ADMIN: Combtv4, vc1 Very Agttd3, Agttd2, Rstlss1, AlertClm0, Drwsy-1, Lt Sdtn-2, Mod Sdtn-3, Dp Sdtn-4, UnArsble-5 Route: PO; 06:03 Drug: Ondansetron PO 4 mg PO once Route: PO; vc1 06:04 Drug: Dicyclomine PO 20 mg PO once Route: PO; vc1 06:04 Drug: Promethazine PO 25 mg PO once Route: PO; vc1 06:04 Drug: Ibuprofen PO 800 mg PO once Route: PO; vc1 Disposition Summary: 08/22/23 06:53 Discharge Ordered Problem: new sp4 Symptoms: have improved sp4 Condition: Stable sp4 Diagnosis - Other specified viral diseases sp4 - Acute systemic viral illness, acute common cold, acute viral pharyngitis sp4 Followup: sp4 - With: Private Physician - When: 7 - 10 days - Reason: Recheck today's complaints Discharge Instructions: - Discharge Summary Sheet sp4 - Viral Respiratory Infection sp4 Forms: - Work release form em1 - Patient Portal Instructions sp4 Prescriptions: - dextromethorphan-guaifenesin 60-1,200 mg Oral Tablet, Extended Release 12 hr - take 1 tablet ORAL route every 12 hours as needed for cough; 42 tablet; sp4 Refills: 0, Product Selection Permitted - diphenhydramine HCl 25 mg Oral capsule - take 1 capsule ORAL route At bedtime PRN congestion; 30 capsule; Refills: 0, sp4 Product Selection Permitted - Ibuprofen 800 mg Oral tablet - take 1 tablet ORAL route every 6 hours As needed take with food; 30 tablet; sp4 Refills: 0, Product Selection Permitted - promethazine 25 mg Oral tablet - take 1 tablet ORAL route every 6 hours As needed PRN nausea; 30 tablet; sp4 Refills: 0, Product Selection Permitted - dicyclomine 20 mg Oral tablet - take 1 tablet ORAL route every 6 hours PRN stomach pains; 30 tablet; Refills: sp4 0, Product Selection Permitted Signatures: Dispatcher [employer] Di Damian RN RN vc1 Ronald Kee MD MD sp4
[2023-08-22 09:15] VITALS: BP 122/85; TEMP 99.8; O2SAT 95
== END ==
LOC: ER 04:48
DX: B34.8 Other viral infections of unspecified site (principal); J02.8 Acute pharyngitis due to other specified organisms; J45.909 Unspecified asthma, uncomplicated; I10 Essential (primary) hypertension; K21.9 Gastro-esophageal reflux disease without esophagitis; Z11.52 Encounter for screening for COVID-19
CPT/HCPCS: 36415; 87804 ×2; 99283; 87811; Q0169; Q0162

== ENCOUNTER 2024-05-03 18:38 | Emergency (ER) | payer BC ==
--- OUTSIDE RECORDS SUMMARY | 2024-05-03 18:42 | XMS REPORT | Continuity of Care Document ---
Author Name Unknown Address [address] [facility] [place] [address] [facility] thconnect Address [address] [facility] [address] [place] [address] Care Team Providers Care [employer] Builder Name Role Phone Nino Aleman Primary Care Physician Medications Ordered Medication Name Filled Medication Name Start Date Stop Date Current Medication? Ordering Clinician Indication Dosage Frequency Signature (SIG) Comments Components Source TAKE 1 TABLET BY MOUTH EVERY 6 HOURS NEEDED FOR NAUSEA 08-22 00:00: 00 Yes Artur Harrington TAKE 1 TABLET BY MOUTH EVERY 6 HOURS NEEDED FOR PAIN TAKE WITH FOOD 08-22 00:00: 00 Yes Artur Harrington TAKE 1 TABLET BY MOUTH EVERY 6 HOURS NEEDED FOR STOMACH PAINS 08-22 00:00: 00 Yes Artur Harrington TAKE 1 TABLET BY MOUTH ONCE DAILY NEEDED FOR ERECTILE DYSFUNCTION 10-05 00:00: 00 Yes Artur Harrington TAKE 1 TABLET BY MOUTH EVERY 12 HOURS FOR 10 DAYS 2021-07 0 00:00: 00 Yes Artur Harrington TAKE 1 TABLET BY MOUTH EVERY 8 HOURS FOR 10 DAYS 2021-07 0 00:00: 00 Yes Artur Harrington Vital Signs Vital Name Observation Time Observation Value Comments S mekhi BP Systolic 2024-04-17 08:30:00 136 mm[Hg] Marquise Harrington BP Diastolic 2024-04-17 08:30:00 81 mm[Hg] Jonnathan Harrington Weight Measured 2024-04-17 08:30:00 324.40 pounds Artur Harrington Height Measured 2024-04-17 08:30:00 72.00 inches Artur Harrington Body Temperature 2024-04-17 08:30:00 98.30 degrees Artur F Len Heart Rate 2024-04-17 08:30:00 75.00 /min Elena en F Len Respiratory Rate 2024-04-17 08:30:00 18.00 /min Artur F Len Body Temperature 2024-01-16 16:01:00 97.40 degrees Artur F Len Heart Rate 2024-01-16 16:01:00 121.00 /min Step hen F Len Respiratory Rate 2024-01-16 16:01:00 Artur F Len BP Systolic 2024-01-16 16:01:00 148 mm[Hg] Step hen F Len BP Diastolic 2024-01-16 16:01:00 102 mm[Hg] Jonnathan phen F Len Weight Measured 2024-01-16 16:01:00 341.00 pounds Artur F Len Height Measured 2024-01-16 16:01:00 72.00 inches Artur F Len BP Systolic 2023-10-08 11:17:00 132 mm[Hg] Step hen F Len BP Diastolic 2023-10-08 11:17:00 89 mm[Hg] Jonnathan phen F Len Weight Measured 2023-10-08 11:17:00 333.20 pounds Artur F Len Height Measured 2023-10-08 11:17:00 72.00 inches Artur F Len Body Temperature 2023-10-08 11:17:00 98.30 degrees Artur F Len Heart Rate 2023-10-08 11:17:00 75.00 /min Elena en F Len Respiratory Rate 2023-10-08 11:17:00 16.00 /min Artur F Len BP Systolic 2023-05-09 15:15:00 129 mm[Hg] Step hen F Len BP Diastolic 2023-05-09 15:15:00 77 mm[Hg] Jonnathan phen F Len Weight Measured 2023-05-09 15:15:00 321.00 pounds Artur F Len Height Measured 2023-05-09 15:15:00 72.00 inches Artur F Len Body Temperature 2023-05-09 15:15:00 97.70 degrees Artur F Len Heart Rate 2023-05-09 15:15:00 88.00 /min Elena en F Len Respiratory Rate 2023-05-09 15:15:00 25.00 /min Artur Harrington Encounters Start Date/Time End Date/Time Encounter Type Admission Type Attending [facility] Care Department Encounter ID Source 2024-04-17 08:25:25 2024-04-17 08:25:25 Outpatient SFA SFA [id number] Artur Harrington 2024-04-17 00:00:00 2024-04-17 00:00:00 Outpatient Visit SFA [id number] Artur Harrington 2024-01-16 15:55:20 2024-01-16 15:55:20 Outpatient SFA [id number] [id number] Artur Harrington 2024-01-16 00:00:00 2024-01-16 00:00:00 Outpatient Visit SFA [id number] Artur Harrington 2023-10-08 11:11:26 2023-10-08 11:11:26 Outpatient SFA [id number] [id number] Artur Harrington 2023-05-09 15:08:33 2023-05-09 15:08:33 Outpatient SFA SFA [id number] Artur Macdonald Len Notes Date/Time Note Provider Source Artur Renae[facility]2024-06-20 00:00:00 Artur Hanson [facility]
[2024-05-03] MEDS ORDERED: IBUPROFEN 400 MG TAB ONE (19:12)
[2024-05-03] MEDS ORDERED: HYDROCODONE/APAP 5/325 MG TAB ONE (19:12)
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
[2024-05-03] MEDS ORDERED: AMOX/K CLAV 875 MG TAB ONE (21:08)
[2024-05-03 21:23] VITALS: TEMP 97.8
[2024-05-03 21:25] VITALS: BP 145/98; O2SAT 99
== END 2024-05-03 21:17 | disposition home or self-care (01) ==
LOC: ER 18:38
DX: S02.2XXA Fracture of nasal bones, initial encounter for closed fracture (principal)
CPT/HCPCS: 70450; 70486; 76377; 99283

== ENCOUNTER 2024-05-11 08:14 | Emergency (ER) | payer BC ==
--- OUTSIDE RECORDS SUMMARY | 2024-05-11 08:17 | XMS REPORT | Continuity of Care Document ---
Author Name Unknown Address [address] [address] [place] [id number] [facility] thconnect Address [address] [place] [address] Care Team Providers Care Commercial Lines Account Manager Name Role Phone Nino Aleman Primary Care Physician [phone] Medications Ordered Medication Name Filled Medication Name [...] EVERY 8 HOURS FOR 10 DAYS 2021-07 00:00: 00 Yes Artur Harrington Vital Signs [...] End Date/Time Encounter Type Admission Type Attending [facility] Care Department Encounter ID Source 2024-04-17 08:25:25 2024-04-17 08:25:25 Outpatient SFA SFA [id number] Artur Harrington 2024-04-17 00:00:00 2024-04-17 00:00:00 Outpatient Visit SFA [id number] Artur Harrington 2024-01-16 15:55:20 2024-01-16 15:55:20 Outpatient SFA [id number] [id number] Artur Harrington 2024-01-16 00:00:00 2024-01-16 00:00:00 Outpatient Visit SFA [id number] Artur Harrington 2023-10-08 11:11:26 2023-10-08 11:11:26 Outpatient SFA [id number] [id number] Artur Harrington 2023-05-09 15:08:33 2023-05-09 15:08:33 Outpatient SFA SFA [id number] Artur Macdonald Len Notes Date/Time Note Provider Source [facility]:00 Artur Hanson [facility]
[2024-05-11 08:29] LABS: Absolute Basophils 0.1 K/uL (0-0.5); Absolute Eosinophils 0.1 K/uL (0-0.5); Absolute Lymphocytes (CBC) 2.1 K/uL (0.7-4.9); Absolute Neutrophil 6.2 K/uL (1.8-8.0); Basophils % 0.6 % (0-1.3); Eosinophils % 0.9 % (0-4.4); Hematocrit 44.4 % (39.6-49.0); Hemoglobin 15.4 g/dL (13.6-17.9); MCH 31.2 pg (27.0-35.0); MCHC 34.7 g/dL (32.0-36.0); MCV 90.1 fL (80-100); MPV 6.2 fL (7.6-11.3); Monocytes % 10.4 % (3.3-12.3); Neutrophils % 66.1 % (41.7-73.7); Nucleated Red Blood Cells % 0.1 % (0-0); Platelets 341 thou/uL (152-406); RBC Red Blood Cell Count 4.92 M/uL (4.33-5.43); Red Cell Distribution Width 13.1 % (12.1-15.2)
[2024-05-11] MEDS ORDERED: FAMOTIDINE 20 MG/2 ML VIAL IV ONE (08:34)
[2024-05-11] MEDS ORDERED: KETOROLAC 30 MG/ML INJ ONE (08:34)
[2024-05-11] MEDS ORDERED: NA CHLORIDE 0.9% 1,000 ML ONE (08:34)
[2024-05-11 08:44] LABS: Albumin 3.7 g/dL (3.4-5.0); Albumin/Globulin Ratio 0.8 (1.1-1.8); Anion Gap 9.6 mEq/L (5.0-15.0); Bilirubin Total 0.3 mg/dL (0.2-1.0); Globulin 4.5 g/dL (2.3-3.5); Potassium 3.6 mEq/L (3.5-5.1); Protein, Total 8.2 g/dL (6.4-8.2)
[2024-05-11 09:03] LABS: SARS-CoV-2 Antigen CONTROL BLUE LINE VIS/BG OK; SARS-CoV-2 Antigen Rapid Res Negative (Negative)
--- NOTE | 2024-05-11 09:07 | RAD REPORT ---
EXAM: Right upper quadrant ultrasound. CLINICAL HISTORY: ABD PAIN COMPARISON: 12/06/2017 FINDINGS: Gallbladder: Normal. Bile ducts: No intrahepatic or extrahepatic biliary dilatation. Common bile duct measures 3 mm. Limited imaging of the liver shows no concerning finding. IMPRESSION: Unremarkable exam.
--- NOTE | 2024-05-11 10:24 | RAD REPORT ---
EXAMINATION: CT ABDOMEN AND PELVIS WITH CONTRAST CLINICAL INDICATION: ABD PAIN TECHNIQUE: CT abdomen and pelvis was performed, after the administration of IV contrast, as per [facility] protocol. Axial, sagittal and coronal reconstructions were obtained. One or more of the following dose reduction techniques were used: Automated exposure control, adjustment of the mA and k V according to patient size, and iterative reconstruction. Unless otherwise specified, incidental findings do not require dedicated imaging follow-up. COMPARISON: 12/29/2023, 05/24/2002 FINDINGS: LOWER CHEST: 10 mm nodule in the right posterior gutter with central calcification is likely benign. LIVER: Normal in size and contour. No focal lesion. Grossly unremarkable gallbladder. SPLEEN: Normal size. No focal lesion. PANCREAS: No mass, ductal dilation, or izabela-pancreatic fluid. ADRENALS: Normal; no mass. KIDNEYS: Normal size and contour. No hydronephrosis. GASTROINTESTINAL TRACT: No evidence of free air, significant intra-abdominal free fluid, bowel obstru ction or abscess. Small fat-containing umbilical hernia. Mild colonic diverticulosis without diverticulitis. APPENDIX: Normal appendix. LYMPH NODES: No lymphadenopathy. MUSCULOSKELETAL: No acute or suspicious osseous abnormality. ADDITIONAL FINDINGS: None. IMPRESSION: No acute or concerning abnormalities seen in the abdomen or pelvis.
--- NOTE | 2024-05-11 10:26 | EDPHYS ---
Physician Documentation [facility] Name: Graham Rosenbaum Age: 33 yrs Sex: Male : 1990 Arrival Date: 05/11/2024 Time: 08:14 Bed 8 Private MD: ED Physician Xavier Rios HPI: 05/11 08:21 This 33 yrs old Male presents to ER via EMS with complaints of Abdominal Pain. kb 08:21 Pt is a 33 year old male who presents for RUQ pain that started this morning with kb associated nausea. States pain started after eating. States he has also had cough, congestion, sore throat and diarrhea for 4 days. Reports he had chills on the first day but denies fever/chills since then. No aggravating or alleviating factors. . Historical: - Allergies: 08:19 No Known Drug Allergies; bp - PMHx: 08:19 2 polyps; Asthma; Diverticulitis; GERD; hiatal hernia; Hypertension; ULCER; bp - PSHx: 08:19 left hand; bp - Immunization history:: Adult Immunizations up to date. - Infectious Disease History:: Denies. - Social history:: Smoking status: Patient denies any tobacco usage or history of. ROS: 08:22 Constitutional: As per HPI kb Exam: 08:22 Constitutional: This is a well developed, well nourished patient who is awake, alert, kb and in no acute distress. Head/Face: Normocephalic, atraumatic. ENT: Moist Mucous membranes Cardiovascular: Regular rate Respiratory: Respirations even and unlabored. No increased work of breathing. Talking in full sentences Abdomen/GI: Soft, non-tender. No distention Skin: Warm, dry with normal turgor. Normal color. MS/ Extremity: Pulses equal, no cyanosis. Neurovascular intact. Full, normal range of motion. Neuro: Awake and alert, GCS 15, oriented to person, place, time, and situation. Moves all extremities. Normal gait. Vital Signs: 08:15 BP 128 / 78; Pulse 107; Resp 16; Temp 98; Pulse Ox 96% ; bp 10:34 BP 115 / 75; Pulse 83; Resp 16; Pulse Ox 97% ; bp MDM: 08:18 Patient medically screened. kb 08:22 Data reviewed: vital signs, nurses notes. kb 10:25 Differential diagnosis: cholecystitis, Cholelithiasis, diverticulitis, non-specific abd kb pain, viral illness. Historians other than the Patient: EMS: [facility]. Counseling: I had a detailed discussion with the patient and/or guardian regarding the historical points, exam findings, and any diagnostic results supporting the discharge/admit diagnosis, lab results, radiology results, the need for outpatient follow up, a family practitioner, to return to the emergency department if symptoms worsen or persist or if there are any questions or concerns that arise at home. 05/11 08:18 Order name: Strep kb 05/11 08:18 Order name: CBC with Diff; Complete Time: 08:36 kb 05/11 08:18 Order name: CMP; Complete Time: 08:52 kb 05/11 08:18 Order name: Lipase; Complete Time: 08:52 kb 05/11 08:18 Order name: Flu; Complete Time: 09:46 kb 05/11 08:18 Order name: SARS-COV-2 Antigen Rapid; Complete Time: 09:16 kb 05/11 09:06 Order name: Throat Culture EDMS 05/11 08:18 Order name: Abdomen Limited US; Complete Time: 09:16 kb 05/11 09:16 Order name: CT Abd/Pelvis - IV Contrast Only; Complete Time: 10:25 kb 05/11 08:18 Order name: IV Saline Lock; Complete Time: 08:24 kb 05/11 08:18 Order name: Labs collected and sent; Complete Time: 08:24 kb Administered Medications: 08:48 Drug: Famotidine IVP 20 mg IVP once; dilute with 10 mL 0.9% NaCl; give over 2 minutes bp Route: IVP; Site: right antecubital; 10:37 Follow up: Response: No adverse reaction bp 08:48 Drug: TORadol - Ketorolac IVP 15 mg IVP once Route: IVP; Site: right antecubital; bp 10:37 Follow up: Response: No adverse reaction bp 08:48 Drug: NS 0.9% IV 1000 ml IV at 1 bolus Per protocol; to be given as a bolus over 60 bp minutes Route: IV; Rate: 1 bolus; Site: right antecubital; 10:36 Follow up: IV Status: Completed infusion; IV Intake: 1000ml bp Disposition Summary: 05/11/24 10:26 Discharge Ordered Notes: Location: Home kb Condition: Stable kb Diagnosis - Upper abdominal pain, unspecified kb - Viral infection, unspecified kb Followup: kb - With: Emergency Department - When: As needed - Reason: Worsening of condition Followup: kb - With: Private Physician - When: 2 - 3 days - Reason: Recheck today's complaints, Continuance of care, Re-evaluation by your physician Discharge Instructions: - Discharge Summary Sheet kb - Abdominal Pain, Adult, [id number] kb - Viral Illness, Adult kb Forms: - Medication Reconciliation Form kb - Antibiotic Education kb - Prescription Opioid Use kb - Patient Portal Instructions kb - Leadership Thank You Letter kb Prescriptions: - Zofran 4 mg Oral tablet - take 1 tablet ORAL route every 6 hours As needed; 12 tablet; Refills: 0, kb Product Selection Permitted - dicyclomine 20 mg Oral tablet - take 1 tablet ORAL route 4 times per day As needed; 20 tablet; Refills: 0, kb Product Selection Permitted Signatures: Dispatcher [employer] EDQiana Mock, [employer]-Landry Huggins, RN RN bp Corrections: (The following items were deleted from the chart) 08:19 08:19 Abdomen Limited+[id number] ordered. EDMD ED
--- NOTE | 2024-05-11 10:26 | ER ---
Nurse's Notes [facility] Name: Graham Rosenbaum Age: 33 yrs Sex: Male : 1990 Arrival Date: 05/11/2024 Time: 08:14 Bed 8 Private MD: Diagnosis: Upper abdominal pain, unspecified;Viral infection, unspecified Presentation: 05/11 08:15 Chief complaint: EMS states: RUQ PAIN WITH NAUSEA. Coronavirus screen: At this time, bp the client does not indicate any symptoms associated with coronavirus-19. Ebola Screen: No symptoms or risks identified at this time. Initial Sepsis Screen: Does the patient meet any 2 criteria? No. Patient's initial sepsis screen is negative. Does the patient have a suspected source of infection? No. Patient's initial sepsis screen is negative. Risk Assessment: Do you want to hurt yourself or someone else? Patient reports no desire to harm self or others. Onset of symptoms is unknown. Care prior to arrival: IV initiated. 20 GA, in the right antecubital area, Glucose check: 82. 08:15 Method Of Arrival: EMS: [facility] bp 08:15 Acuity: SAMANTHA 3 bp Triage Assessment: 08:19 General: Appears in no apparent distress. Behavior is calm, cooperative, appropriate bp for age. Pain: Complains of pain in abdomen. GI: Abdomen is non-distended. Historical: - Allergies: 08:19 No Known Drug Allergies; bp - PMHx: 08:19 2 polyps; Asthma; Diverticulitis; GERD; hiatal hernia; Hypertension; ULCER; bp - PSHx: 08:19 left hand; bp - Immunization history:: Adult Immunizations up to date. - Infectious Disease History:: Denies. - Social history:: Smoking status: Patient denies any tobacco usage or history of. Screenin:35 [facility] ED Fall Risk Assessment (Adult) History of falling in the last 3 months, bp including since admission No falls in past 3 months (0 pts) Confusion or Disorientation No (0 pts) Intoxicated or Sedated No (0 pts) Impaired Gait No (0 pts) Mobility Assist Device Used No (0 pt) Altered Elimination No (0 pt) Score/Fall Risk Level 0 - 2 = Low Risk. Abuse screen: Denies threats or abuse. Denies injuries from another. Nutritional screening: No deficits noted. Tuberculosis screening: No symptoms or risk factors identified. Assessment: 08:46 Reassessment: Pt back from [place] . aa5 10:36 Reassessment: DC WITH PD. bp Vital Signs: 08:15 BP 128 / 78; Pulse 107; Resp 16; Temp 98; Pulse Ox 96% ; bp 10:34 BP 115 / 75; Pulse 83; Resp 16; Pulse Ox 97% ; bp ED Course: 08:15 Patient arrived in ED. bd 08:15 Landry Centeno, KENNEDY is Primary Nurse. bp 08:18 Qiana Gómez FNP-C is PHCP. kb 08:18 Xavier Rios MD is Attending Physician. kb 08:18 Triage completed. bp 08:19 Arm band placed on. bp 08:20 Maintain EMS IV. Dressing intact. Good blood return noted. Site clean \T\ dry. Gauge \T\ bp site: 20 RAC. Flushed with 10 mL NS. 08:23 Initial lab(s) drawn, by me, sent to lab. aa5 08:27 COVID swab sent to lab. Flu and/or RSV swab sent to lab. Strep swab sent to lab. aa5 08:45 Abdomen Limited US In Process Unspecified. EDMS 10:18 CT Abd/Pelvis - IV Contrast Only In Process Unspecified. EDMS 10:35 Patient has correct armband on for positive identification. bp 10:35 No provider procedures requiring assistance completed. IV discontinued, intact, bp bleeding controlled, No redness/swelling at site. Pressure dressing applied. 10:36 Provided Education on: N/A. bp Administered Medications: 08:48 Drug: Famotidine IVP 20 mg IVP once; dilute with 10 mL 0.9% NaCl; give over 2 minutes bp Route: IVP; Site: right antecubital; 10:37 Follow up: Response: No adverse reaction bp 08:48 Drug: TORadol - Ketorolac IVP 15 mg IVP once Route: IVP; Site: right antecubital; bp 10:37 Follow up: Response: No adverse reaction bp 08:48 Drug: NS 0.9% IV 1000 ml IV at 1 bolus Per protocol; to be given as a bolus over 60 bp minutes Route: IV; Rate: 1 bolus; Site: right antecubital; 10:36 Follow up: IV Status: Completed infusion; IV Intake: 1000ml bp Medication: 10:36 VIS not applicable for this client. bp Intake: 10:36 IV: 1000ml; Total: 1000ml. bp Outcome: 10:26 Discharge ordered by MD. lopez 10:35 Discharged to Law Enforcement bp 10:35 Condition: stable 10:35 Discharge instructions given to patient, police, Instructed on discharge instructions, follow up and referral plans. Demonstrated understanding of instructions, follow-up care, 10:42 Patient left the ED. bp Signatures: Dispatcher [employer] EDMS Qiana Gómez, JACKLYN-C MEDICAL RECORDS DIRECTOR-Edilia Rasheed Audri, RN RN aa5 Landry Centeno RN RN bp
[2024-05-11 11:20] VITALS: TEMP 98
[2024-05-11 11:22] VITALS: BP 115/75; O2SAT 97
== END 2024-05-11 10:42 | disposition home or self-care (01) ==
LOC: ER 08:14
DX: B34.9 Viral infection, unspecified (principal); R05.9 Cough, unspecified; Z11.52 Encounter for screening for COVID-19
CPT/HCPCS: 87070; 85025; 36415; 87081; 83690; 80053; 87804 ×2; 74177; 76705; 87811; Q9967; J7030; 96361; 96374; 96375; 99284